=== PATIENT | male | born 1970 | race Caucasian/White ===

== ENCOUNTER 2020-04-13 19:25 | Emergency (ER) | payer OTHER, SELFPAY ==
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
[2020-04-13 19:35] VITALS: BP 121/76; PULSE 111; PULSE 120; RESP 16; TEMP 37.1; O2SAT 94; BMI 25.8
[2020-04-13 20:04] VITALS: BP 119/81; PULSE 110; RESP 19; TEMP 36.3; O2SAT 95; BMI 56.9
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
[2020-04-13 21:19] VITALS: BP 127/88; PULSE 105; RESP 16; O2SAT 96
== END 2020-04-13 21:41 | disposition home or self-care (01) ==
PROVIDERS: Emergency Provider Emergency Medicine
DX: S06.0X1A Concussion with loss of consciousness of 30 minutes or less, initial encounter (principal); G44.309 Post-traumatic headache, unspecified, not intractable; V43.52XA Car driver injured in collision with other type car in traffic accident, initial encounter; Y93.9 Activity, unspecified; Y92.410 Unspecified street and highway as the place of occurrence of the external cause; F17.200 Nicotine dependence, unspecified, uncomplicated; Z71.6 Tobacco abuse counseling; Z21 Asymptomatic human immunodeficiency virus [HIV] infection status; Z79.899 Other long term (current) drug therapy
CPT/HCPCS: 70450; 99284

== ENCOUNTER 2020-04-30 16:59 | Outpatient (REF) | payer OTHER, SELFPAY ==
--- NOTE | 2020-04-30 | XR_ITS ---
EXAMINATION: BILATERAL HAND X-RAY CLINICAL INFORMATION: Pain COMPARISON: Right finger x-ray September 2016 TECHNIQUE: 3 views of each hand FINDINGS: Left: Bone alignment is normal. No fracture or dislocation is seen. There is mild arthritis at the first MCP joint with joint space narrowing and osteophyte formation. Joint spaces are otherwise normal. There is soft tissue calcification adjacent to the distal ulna likely representing tracheal fibrocartilage complex calcification. Soft tissues are otherwise unremarkable. Right: Bone alignment is normal. No fracture or dislocation is seen. There is mild arthritis at the first MCP joint with joint space narrowing and osteophyte formation. Joint spaces are otherwise normal. Soft tissues are normal. XR/XR hand RT min 3V IMPRESSION: Mild bilateral arthritis at the first MCP joint.
--- NOTE | 2020-04-30 | XR_ITS ---
EXAMINATION: BILATERAL HAND X-RAY CLINICAL INFORMATION: Pain COMPARISON: Right finger x-ray September 2016 TECHNIQUE: 3 views of each hand FINDINGS: Left: Bone alignment is normal. No fracture or dislocation is seen. There is mild arthritis at the first MCP joint with joint space narrowing and osteophyte formation. Joint spaces are otherwise normal. There is soft tissue calcification adjacent to the distal ulna likely representing tracheal fibrocartilage complex calcification. Soft tissues are otherwise unremarkable. Right: Bone alignment is normal. No fracture or dislocation is seen. There is mild arthritis at the first MCP joint with joint space narrowing and osteophyte formation. Joint spaces are otherwise normal. Soft tissues are normal. XR/XR hand LT min 3V IMPRESSION: Mild bilateral arthritis at the first MCP joint.
== END 2020-04-30 17:00 | disposition home or self-care (01) ==
LOC: HO.LAB 16:59
PROVIDERS: Visit Provider Internal Medicine
DX: M79.641 Pain in right hand (principal); M79.642 Pain in left hand
CPT/HCPCS: 73130

== ENCOUNTER 2022-08-04 15:13 | Outpatient (REF) | payer MEDICAID, SELFPAY ==
--- NOTE | ~2022-08-04 | US_ITS ---
EXAMINATION: US VENOUS WITH DOPPLER UPPER EXTREMITY, LEFT CLINICAL INFORMATION: Left upper extremity swelling. COMPARISON: None TECHNIQUE: Ultrasound of the upper extremity is performed using compression sonography and color and pulse Doppler flow with assessment of augmentation of flow. There is also imaging and Doppler assessment of the jugular and subclavian veins. Spectral analysis with color-flow imaging is performed. FINDINGS: Respiratory variation, normal compression, and augmented flow are noted throughout the upper extremity including the axillary, brachial, cubital, and radial and ulnar veins. There is normal flow in the internal jugular and subclavian veins. There is no visible deep or superficial thrombophlebitis. If the patient's symptoms progress, a followup ultrasound in 5 -7 days might be of value to exclude proximal propagation from a nonvisualized distal arm vein. US/US venous duplex UE LT IMPRESSION: No evidence for deep venous thrombosis in the visualized veins of the left upper extremity.
== END 2022-08-04 15:14 | disposition home or self-care (01) ==
LOC: HO.US 15:13
PROVIDERS: Visit Provider Family Medicine
DX: M79.89 Other specified soft tissue disorders (principal)
CPT/HCPCS: 93971

== ENCOUNTER 2022-08-04 15:55 | Emergency (ER) | payer MEDICAID, SELFPAY ==
--- NOTE | ~2022-08-04 | XR_ITS ---
EXAMINATION: XR CHEST CLINICAL INFORMATION: Arm and back pain COMPARISON: 03/26/2015 TECHNIQUE: 2 views of the chest were obtained. FINDINGS: No significant abnormality is noted involving the heart, lungs, mediastinum, bony thorax or soft tissues. XR/XR chest 2V IMPRESSION: Unremarkable examination.
[2022-08-04 16:15] VITALS: BP 142/76; PULSE 81; RESP 18; TEMP 36.4; O2SAT 96; BMI 28.8
--- NOTE | 2022-08-04 16:15 | ED_ITS ---
HPI - Chest Pain General Chief Complaint: General Medical Stated Complaint: l arm pain and back pain Related Data Allergies Allergy/AdvReac Type Severity Reaction Status Date / Time No Known Allergies Allergy Verified 04/13/20 19:38 [No Known Allergies*] [facility] Past Medical History Medical History (Updated 08/06/22 @ 11:05 by Erinn Larios NP) Arthritis Bipolar 1 disorder HIV (human immunodeficiency virus infection) Presence of stent in LAD coronary artery Social History Social History Advance Directives: No Advance Directives Information Provided: No Physical Exam Vital Signs: Vital Signs: Last Vital Signs Temp 97.6 F 08/04/22 16:15 Pulse 81 08/04/22 16:15 Resp 18 08/04/22 16:15 BP 142/76 H 08/04/22 16:15 Pulse Ox 96 08/04/22 16:15 O2 Del Method 08/04/22 16:15 BMI result Body Mass Index 28.8 Course Course Course Narrative: This is rapid medical exam. Deferred additional HPI, ROS, PE to primary provider. 52 yo male with history of CAD s/p stent, HIV on biktarvey, artificial hip here with complaints of left upper back/arm pain x 10 days at night time only. NO symptoms currently. This pain feels similar to previous ID. Will obtain labs, EKG, CXR, covid screen, VSS Medical Decision Making Lab Data 08/04/22 16:30 08/04/22 16:30 Labs: Lab Results 08/04/22 08/04/22 08/04/22 Range/Units 16:30 16:30 16:30 WBC 7.8 (4.8-10.8) X10*3/uL RBC 4.45 L (4.60-5.80) X10*6/uL Hgb 15.0 (14.0-18.0) g/dl Hct 43.2 (42.0-52.0) % MCV 97.1 (80.0-98.0) fL MCH 33.7 H (27.0-33.0) pg MCHC 34.7 (31.0-36.0) g/dl RDW 13.3 (11.0-16.0) % Plt Count 252 (160-400) X10*3/uL MPV 10.0 (9.4-12.4) fL Immature Gran % (Auto) 0.3 (0.0-0.4) % Neut % (Auto) 49.2 (45-73) % Lymph % (Auto) 36.4 (20-40) % [place] % (Auto) 9.4 (2-11) % Eos % (Auto) 4.4 H (0-4) % Baso % (Auto) 0.3 (0-2) % Lymph # (Auto) 2.8 (1.2-4.9) X10*3/uL [place] # (Auto) 0.7 (0.1-1.2) X10*3/uL Eos # (Auto) 0.3 (0.0-0.4) X10*3/uL Baso # (Auto) 0.0 (0.0-0.2) X10*3/uL Abs Immat Gran (auto) 0.02 (0.00-0.03) X10*3/uL Absolute Neuts (auto) 3.8 (2.0-8.3) x10*3/uL Absolute Nucleated RBC 0.000 (0.0-0.012) X10*3/uL Nucleated RBC % (auto) 0.0 (0.0-0.2) /100WBC Sodium 139 (135-145) mmol/L Potassium 4.2 (3.3-5.1) mmol/L Chloride 109 H (96-108) mmol/L Carbon Dioxide 21 L (22-29) mmol/L Anion Gap 13 (12-20) BUN 18 H (9-16) mg/dL Creatinine 0.98 (0.5-1.4) mg/dL Estim Creat Clear Calc 98.1 Estimated GFR > 60 Random Glucose 95 (60-115) mg/dL Calcium 8.9 (8.4-10.2) mg/dL Total Bilirubin 0.6 (0.0-1.0) mg/dL Direct Bilirubin < 0.2 (0.0-0.5) mg/dL AST 20 (5-37) U/L ALT 29 (0-40) U/L Alkaline Phosphatase 136 H (39-117) U/L Troponin I High Sens (<3.5-35.0) ng/L Total Protein 6.9 (6.5-8.0) g/dL Albumin 4.4 (3.5-5.0) g/dL COVID-19 ([place]) Negative (Negative) COVID-19 Clin Com See Note 08/04/22 Range/Units 16:30 WBC (4.8-10.8) X10*3/uL RBC (4.60-5.80) X10*6/uL Hgb (14.0-18.0) g/dl Hct (42.0-52.0) % MCV (80.0-98.0) fL MCH (27.0-33.0) pg MCHC (31.0-36.0) g/dl RDW (11.0-16.0) % Plt Count (160-400) X10*3/uL MPV (9.4-12.4) fL Immature Gran % (Auto) (0.0-0.4) % Neut % (Auto) (45-73) % Lymph % (Auto) (20-40) % [place] % (Auto) (2-11) % Eos % (Auto) (0-4) % Baso % (Auto) (0-2) % Lymph # (Auto) (1.2-4.9) X10*3/uL [place] # (Auto) (0.1-1.2) X10*3/uL Eos # (Auto) (0.0-0.4) X10*3/uL Baso # (Auto) (0.0-0.2) X10*3/uL Abs Immat Gran (auto) (0.00-0.03) X10*3/uL Absolute Neuts (auto) (2.0-8.3) x10*3/uL Absolute Nucleated RBC (0.0-0.012) X10*3/uL Nucleated RBC % (auto) (0.0-0.2) /100WBC Sodium (135-145) mmol/L Potassium (3.3-5.1) mmol/L Chloride (96-108) mmol/L Carbon Dioxide (22-29) mmol/L Anion Gap (12-20) BUN (9-16) mg/dL Creatinine (0.5-1.4) mg/dL Estim Creat Clear Calc Estimated GFR Random Glucose (60-115) mg/dL Calcium (8.4-10.2) mg/dL Total Bilirubin (0.0-1.0) mg/dL Direct Bilirubin (0.0-0.5) mg/dL AST (5-37) U/L ALT (0-40) U/L Alkaline Phosphatase (39-117) U/L Troponin I High Sens 8.5 (<3.5-35.0) ng/L Total Protein (6.5-8.0) g/dL Albumin (3.5-5.0) g/dL COVID-19 ([place]) (Negative) COVID-19 Clin Com Discharge Plan Discharge Clinical Impression: Back pain Patient Disposition: Elopement Interventions: ED Discharge Assessment Last Done: 08/04/22 23:48 Discharge Date/Time: 08/04/22 23:49
--- NOTE | 2022-08-04 16:17 | ECG_ITS ---
Test Reason : cp Blood Pressure : / mmHG Vent. Rate : 077 BPM Atrial Rate : 077 BPM P-R Int : 166 ms QRS Dur : 086 ms QT Int : 366 ms P-R-T Axes : 022 050 024 degrees QTc Int : 414 ms Normal sinus rhythm Normal ECG When compared with ECG of 19-AUG-2018 21:15, No significant change was found Referred By: Erinn Larios Electronically Signed By:Raymond Mckinnon
[2022-08-04 16:38] LABS: MANUAL DIFF FLAG NO
[2022-08-04 16:39] LABS: Basophils Percent Auto 0.3 % (0-2); Eosinophils Absolute Auto 0.3 X10*3/uL (0.0-0.4); Eosinophils Percent Auto 4.4 % (0-4); Hematocrit 43.2 % (42.0-52.0); Imm Gran Abs Auto 0.02 X10*3/uL (0.00-0.03); Imm Gran Pct Auto 0.3 % (0.0-0.4); Lymphocytes Absolute Auto 2.8 X10*3/uL (1.2-4.9); Lymphocytes Percent Auto 36.4 % (20-40); Mean Corpuscular HGB Conc 34.7 g/dl (31.0-36.0); Mean Corpuscular Hemoglobin 33.7 pg (27.0-33.0); Mean Corpuscular Volume 97.1 fL (80.0-98.0); Monocytes Absolute Auto 0.7 X10*3/uL (0.1-1.2); Monocytes Percent Auto 9.4 % (2-11); Neutrophils Absolute Auto 3.8 x10*3/uL (2.0-8.3); Neutrophils Percent Auto 49.2 % (45-73); Platelet Count 252 X10*3/uL (160-400); Red Blood Count 4.45 X10*6/uL (4.60-5.80); Red Cell Distribution Width 13.3 % (11.0-16.0); White Blood Count 7.8 X10*3/uL (4.8-10.8)
[2022-08-04 16:55] LABS: COVID-19 Test Negative (Negative); IDNOW Serial# 9DB6401D
[2022-08-04 16:58] LABS: Alanine Aminotransferase 29 U/L (0-40); Albumin Level 4.4 g/dL (3.5-5.0); Alkaline Phosphatase 136 U/L (39-117); Anion Gap 13 (12-20); Aspartate Amino Transferase 20 U/L (5-37); Bilirubin Direct < 0.2 mg/dL (0.0-0.5); Bilirubin Total 0.6 mg/dL (0.0-1.0); Blood Urea Nitrogen 18 mg/dL (9-16); Calcium 8.9 mg/dL (8.4-10.2); Carbon Dioxide 21 mmol/L (22-29); Chloride 109 mmol/L (96-108); Creatinine Clr Calc Pharmacy 98.1; Estimated Glomerular Filt Rate > 60; Glucose Random 95 mg/dL (60-115); Potassium 4.2 mmol/L (3.3-5.1); Sodium 139 mmol/L (135-145); Total Protein 6.9 g/dL (6.5-8.0)
[2022-08-04 17:05] LABS: Troponin-I High Sensitivity 8.5 ng/L (<3.5-35.0)
== END 2022-08-04 23:49 | disposition left against medical advice (07) ==
PROVIDERS: Nurse Practitioner Family; Emergency Provider Emergency Medicine; PCP Internal Medicine
DX: R07.89 Other chest pain (principal); M54.2 Cervicalgia; M54.50 Low back pain, unspecified; Z20.822 Contact with and (suspected) exposure to COVID-19; Z20.828 Contact with and (suspected) exposure to other viral communicable diseases; Z79.899 Other long term (current) drug therapy
CPT/HCPCS: 36415; 71046; 80048; 80076; 84484; 85025; 87635; 93005; 99283

== ENCOUNTER 2023-10-22 13:51 | Outpatient (REF) | payer MEDICAID, SELFPAY ==
[2023-10-22 16:35] LABS: Alanine Aminotransferase 19 U/L (0-40); Albumin Level 4.4 g/dL (3.5-5.0); Alkaline Phosphatase 86 U/L (39-117); Anion Gap 12 (12-20); Aspartate Amino Transferase 19 U/L (5-37); Bilirubin Total 0.4 mg/dL (0.0-1.0); Blood Urea Nitrogen 20 mg/dL (9-16); Calcium 9.5 mg/dL (8.4-10.2); Carbon Dioxide 24 mmol/L (22-29); Chloride 106 mmol/L (96-108); Estimated Glomerular Filt Rate > 60; Glucose Random 122 mg/dL (60-115); Potassium 4.4 mmol/L (3.3-5.1); Sodium 138 mmol/L (135-145); Total Protein 7.4 g/dL (6.5-8.0)
[2023-10-22 16:38] LABS: Basophils Percent Auto 0.4 % (0-2); Eosinophils Absolute Auto 0.2 X10*3/uL (0.0-0.4); Eosinophils Percent Auto 3.9 % (0-4); Hematocrit 46.6 % (42.0-52.0); Hemoglobin 15.6 g/dl (14.0-18.0); Imm Gran Abs Auto 0.02 X10*3/uL (0.00-0.03); Imm Gran Pct Auto 0.4 % (0.0-0.4); Lymphocytes Absolute Auto 1.5 X10*3/uL (1.2-4.9); Lymphocytes Percent Auto 30.2 % (20-40); MANUAL DIFF FLAG SCAN; Mean Corpuscular HGB Conc 33.5 g/dl (31.0-36.0); Mean Corpuscular Hemoglobin 31.5 pg (27.0-33.0); Mean Platelet Volume 10.9 fL (9.4-12.4); Monocytes Absolute Auto 0.6 X10*3/uL (0.1-1.2); Monocytes Percent Auto 12.6 % (2-11); Neutrophils Absolute Auto 2.5 x10*3/uL (2.0-8.3); Neutrophils Percent Auto 52.5 % (45-73); PLT CLUMP 1; Red Blood Count 4.96 X10*6/uL (4.60-5.80); Red Cell Distribution Width 13.1 % (11.0-16.0); SCAN SMEAR FLAG 1
[2023-10-22 17:20] LABS: Platelet Count 195 X10*3/uL (160-400); White Blood Count 4.8 X10*3/uL (4.8-10.8)
[2023-10-22 17:25] LABS: SLIDE REVIEW VERIFIED
[2023-10-23 10:42] LABS: Absolute CD3 Count 1338 cells/uL (840-3060); Absolute CD4 Count 655 cells/uL (490-1740); Absolute CD8 Count 693 cells/uL (180-1170); Absolute Lymphocytes 1622 cells/uL (850-3900); CD4 CD8 Ratio 0.94 (0.86-5.00); Percent CD3 Cells 82 % (57-85); Percent CD4 Cells 40 % (30-61); Percent CD8 Cells 43 % (12-42)
[2023-10-23 12:33] LABS: RPR Rapid Plasma Reagin REACTIVE (NON-REACTIVE)
[2023-10-24 15:23] LABS: HIV RNA PCR Qn Copies <20 DETECTED copies/mL (NOT DETECTED); HIV RNA PCR Qn Log Copies <1.30 DETECTED (NOT DETECTED)
== END 2023-10-22 13:52 | disposition home or self-care (01) ==
LOC: HO.HHCL 13:51
PROVIDERS: Visit Provider Student in an Organized Health Care Education/Training Program
DX: Z21 Asymptomatic human immunodeficiency virus [HIV] infection status (principal)
CPT/HCPCS: 36415; 80053; 85025; 86359; 86360; 86592; 86593; 87536

== ENCOUNTER 2023-12-14 13:27 | Outpatient (REF) | payer MEDICAID, SELFPAY | END 2023-12-14 13:28 | disposition home or self-care (01) | LOC: HO.HHCLNP 13:27 | PROVIDERS: Visit Provider Student in an Organized Health Care Education/Training Program | DX: Z21 Asymptomatic human immunodeficiency virus [HIV] infection status (principal) | CPT/HCPCS: 88112 ==

== ENCOUNTER 2024-01-11 13:54 | Outpatient (AMB) | payer MEDICAID, SELFPAY ==
--- NOTE | 2024-01-11 13:54 | MHC.OFFVIS ---
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 HIV+ *[place] precautions* Patient c/o; reports no complaints. 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 He had undergone anal Pap with his infectious disease doctor last month and this had shown low-grade squamous intraepithelial lesions. He was therefore sent to me for this He has known HIV. He says he has had multiple anal procedures in the past. He denies any pain or discomfort with his anus. He does admit to occasionally sees small amounts of blood on wiping He engages in anal receptive intercourse although he says that he has had none for several months now. [facility] Medical History (Updated 01/11/24 @ 14:25 by Francis Carlson MD) AIN grade I Presence of stent in LAD coronary artery Bipolar 1 disorder Arthritis HIV (human immunodeficiency virus infection) Surgical History No pertinent past surgical history Family History Other Family history unknown Social History Unable to assess alcohol history related to: Unknown Patient Tobacco Use Status: Tobacco use Unknown Review of Systems Const Denies chills and Denies fever(s) Card Denies chest pain, Denies dyspnea and Denies dyspnea on exertion Resp Denies cough, Denies dyspnea and Denies dyspnea on exertion GI Denies hematochezia and Denies change in bowel habits Denies hematuria and Denies difficulty urinating Musc Denies back pain and Denies limited range of motion Neuro Denies focal weakness and Denies convulsions Psych Denies depression and Denies mood swings Physical Exam Vital Signs: Last Vital Signs Pulse 101 H 01/11/24 13:59 BP 126/85 01/11/24 13:59 BMI result Body Mass Index 23.1 Const General: comfortable and no acute distress Orientation/consciousness: patient oriented x3 Neck Neck: Yes no lymphadenopathy Resp Auscultation: clear to auscultation bilaterally Cardio Rhythm: regular rhythm GI Other: Rectal exam shows external hemorrhoids, both left and right side, moderate-sized, no obvious perianal lesions Palpation (GI): Soft to palpation, nontender and no guarding Neuro General: patient oriented x3 Office Procedures Anoscopy He was in ambrose-knife position. The anoscope was gently inserted. A full examination of the anal canal was done. Examination of the anal canal does not reveal any obvious lesions. There was no mucosal abnormality. He did have mixed internal external hemorrhoidal columns. There was no induration on digital exam. There was no fissure or ulceration. [id number] Assessment & Plan Assessment & Plan (1) AIN grade I: Code(s): K62.82 - Dysplasia of anus Category: Medical Plan: He had AIN 1 on a recent anal Pap. His anoscopy does not suggest any high-grade lesion. I have recommended for him to undergo anoscopy every 6 months here in the office. I will review his records from his previous anal procedures in [place]. We may consider high-resolution anoscopy down the line depending on anoscopy findings I advised him on the importance of protected anal intercourse I will see him again in the office in about 6 months. He has comfortable with the plan. I will also update him once I review his records from [place]. Coding Level of Care Code New Pt Level 3 (43131) Diagnoses AIN grade I K62.82 CPT Codes Details - CPT: 22067-[id number] ([id number])
[2024-01-11 13:59] VITALS: BP 126/85; PULSE 101; BMI 23.1
== END 2024-01-11 14:28 | disposition home or self-care (01) ==
PROVIDERS: PCP Internal Medicine; Referring Provider Student in an Organized Health Care Education/Training Program; Visit Provider Surgery
DX: K62.82 Dysplasia of anus (principal); K64.8 Other hemorrhoids
CPT/HCPCS: 46600; 99203

== ENCOUNTER → 2024-01-11 13:54 | Outpatient (BNVA) | payer MEDICAID, SELFPAY | PROVIDERS: PCP Internal Medicine; Referring Provider Student in an Organized Health Care Education/Training Program; Visit Provider Surgery | DX: K62.82 Dysplasia of anus (principal); K64.8 Other hemorrhoids; K64.4 Residual hemorrhoidal skin tags | CPT/HCPCS: 46600; 99202 ==

== ENCOUNTER 2024-04-06 16:12 | Outpatient (REF) | payer MEDICAID, SELFPAY ==
[2024-04-06 17:52] LABS: MANUAL DIFF FLAG NO
[2024-04-06 18:12] LABS: Basophils Percent Auto 0.4 % (0-2); Eosinophils Absolute Auto 0.5 X10*3/uL (0.0-0.4); Eosinophils Percent Auto 7.7 % (0-4); Hematocrit 43.2 % (42.0-52.0); Hemoglobin 14.7 g/dl (14.0-18.0); Imm Gran Abs Auto 0.02 X10*3/uL (0.00-0.03); Imm Gran Pct Auto 0.3 % (0.0-0.4); Lymphocytes Absolute Auto 2.3 X10*3/uL (1.2-4.9); Lymphocytes Percent Auto 33.4 % (20-40); Mean Corpuscular Hemoglobin 33.1 pg (27.0-33.0); Mean Corpuscular Volume 97.3 fL (80.0-98.0); Monocytes Absolute Auto 0.6 X10*3/uL (0.1-1.2); Monocytes Percent Auto 9.1 % (2-11); Neutrophils Absolute Auto 3.4 x10*3/uL (2.0-8.3); Neutrophils Percent Auto 49.1 % (45-73); Platelet Count 259 X10*3/uL (160-400); Red Blood Count 4.44 X10*6/uL (4.60-5.80); Red Cell Distribution Width 13.7 % (11.0-16.0); White Blood Count 6.9 X10*3/uL (4.8-10.8)
[2024-04-06 18:25] LABS: Estimated Average Glucose 111 mg/dL; Hemoglobin A1c % 5.5 % (<6.0)
[2024-04-06 18:32] LABS: Appearance Urine Clear; Color Urine Yellow; Glucose Urine UA Negative (Negative); Leukocyte Esterase Urine Negative (Negative); Nitrite Urine Negative (Negative); PH 5.5 (5.0-9.0); Urine Blood Negative (Negative); Urine Ketones Negative (Negative); Urine Protein Negative (Neg-Trace)
[2024-04-06 18:37] LABS: Alanine Aminotransferase 23 U/L (0-40); Albumin Level 4.5 g/dL (3.5-5.0); Alkaline Phosphatase 98 U/L (39-117); Anion Gap 14 (12-20); Aspartate Amino Transferase 20 U/L (5-37); Bilirubin Total 0.4 mg/dL (0.0-1.0); Blood Urea Nitrogen 14 mg/dL (9-16); Calcium 9.3 mg/dL (8.4-10.2); Carbon Dioxide 23 mmol/L (22-29); Chloride 109 mmol/L (96-108); Cholesterol 134 mg/dL (<200); Estimated Glomerular Filt Rate > 60; Glucose Random 88 mg/dL (60-115); HDL Cholesterol 33 mg/dL (>40); Potassium 4.6 mmol/L (3.3-5.1); Sodium 141 mmol/L (135-145); Total Protein 7.1 g/dL (6.5-8.0); Triglycerides 433 mg/dL (<150)
[2024-04-06 19:15] LABS: Reflex LDLD? No
[2024-04-07 04:27] LABS: CT PCR NOT DETECTED (Not Detect.); NG PCR NOT DETECTED (Not Detect.)
[2024-04-07 08:42] LABS: HBsAGNum1 0.33 S/CO (0.00-0.99); Hepatitis B Surface Antigen Negative (Negative)
[2024-04-07 08:48] LABS: Hepatitis A Antibody IgG REACTIVE (Nonreactive); ~Hepatitis A Antibody IgG 6.86 S/CO (0.00-0.99)
[2024-04-07 13:09] LABS: HIV RNA PCR Qn Copies <20 DETECTED copies/mL (NOT DETECTED); HIV RNA PCR Qn Log Copies <1.30 DETECTED (NOT DETECTED)
[2024-04-07 13:48] LABS: HCV Log PCR <1.18 NOT DETECTED Log IU/mL (NOT DETECTED); HepC Viral Load <15 NOT DETECTED IU/mL (NOT DETECTED)
[2024-04-09 00:34] LABS: TS Negative Control Passed; TS Panel A 1; TS Panel B 1; TS Positive Control Passed; TSpotTB Negative (Negative)
[2024-04-11 05:08] LABS: Mumps Virus IgG Antibody >300.00 AU/mL; Rubella IgG Antibody <0.90 Index
[2024-04-11 14:53] LABS: RPR Rapid Plasma Reagin REACTIVE (NON-REACTIVE)
== END 2024-04-06 16:13 | disposition home or self-care (01) ==
LOC: HO.HHCL 16:12
PROVIDERS: Visit Provider Student in an Organized Health Care Education/Training Program
DX: Z21 Asymptomatic human immunodeficiency virus [HIV] infection status (principal)
CPT/HCPCS: 36415; 80053; 80061; 81003; 83036; 85025; 86359; 86360; 86481; 86592; 86593; 86708; 86735; 86762; 86765; 86787; 87340; 87491; 87522; 87536; 87591

== ENCOUNTER 2024-05-02 12:01 | Outpatient (REF) | payer MEDICAID, SELFPAY ==
[2024-05-03 12:01] LABS: HBS Num1 733.07 mIU/mL (0-7.99); HBc Num1 0.15 S/CO (0.00-0.79); HBsAGNum1 0.38 S/CO (0.00-0.99); Hepatitis B Core Antibody Nonreactive (Nonreactive); Hepatitis B Surface Antigen Negative (Negative); ~Hepatitis B Surface Antibody REACTIVE (Nonreactive)
[2024-05-03 17:13] LABS: Mumps Virus IgG Antibody >300.00 AU/mL; Rubella IgG Antibody <0.90 Index
[2024-05-04 04:49] LABS: HCV Log PCR <1.18 NOT DETECTED Log IU/mL (NOT DETECTED); HepC Viral Load <15 NOT DETECTED IU/mL (NOT DETECTED)
[2024-05-04 17:04] LABS: RPR Rapid Plasma Reagin REACTIVE (NON-REACTIVE)
[2024-05-06 18:08] LABS: Absolute CD3 Count 1594 cells/uL (840-3060); Absolute CD4 Count 817 cells/uL (490-1740); Absolute CD8 Count 819 cells/uL (180-1170); Absolute Lymphocytes 1843 cells/uL (850-3900); Percent CD3 Cells 86 % (57-85); Percent CD4 Cells 44 % (30-61); Percent CD8 Cells 44 % (12-42)
[2024-05-06 22:45] LABS: C. Trachomatis RNA TMA, Throat NOT DETECTED; N. gonorrhoeae RNA TMA, Throat NOT DETECTED
[2024-05-07 10:39] LABS: C.Trachomatis RNA TMA, Rectal NOT DETECTED; N.Gonorrhoeae RNA TMA, Rectal NOT DETECTED
== END 2024-05-02 12:02 | disposition home or self-care (01) ==
LOC: HO.HHCL 12:01
PROVIDERS: Visit Provider Student in an Organized Health Care Education/Training Program
DX: Z21 Asymptomatic human immunodeficiency virus [HIV] infection status (principal)
CPT/HCPCS: 36415; 86359; 86360; 86592; 86593; 86704; 86706; 86735; 86762; 86765; 87340; 87491; 87522; 87591

== ENCOUNTER 2024-05-09 15:42 | Outpatient (REF) | payer MEDICAID, SELFPAY ==
--- NOTE | ~2024-05-09 | XR_ITS ---
EXAMINATION: XR HIP, LEFT CLINICAL INFORMATION: RDER STATES OA OF LEFT HIP,LEFT HIP PAIN.PT STATES PAIN IS BECOMING UNBEARABLE. COMPARISON: X-ray of the pelvis January 2020 . X-ray of the left hip December 2017 TECHNIQUE: Two views of the left hip. FINDINGS: There is nonuniform joint space narrowing which is severe along the superior lateral aspect of the hip joint which is progressed compared to prior prominent marginal osteophytes. Surrounding bone and soft tissues unremarkable. XR/XR hip LT min 2V IMPRESSION: Severe osteoarthritis of the left hip with the degenerative changes progressing compared to prior x-ray in 2019 and 2017 Electronically signed by: Angel Luis Aranda MD 05/09/2024 04:23 PM EST RP
== END 2024-05-09 15:43 | disposition home or self-care (01) ==
LOC: HO.HHCX 15:42
PROVIDERS: Visit Provider Internal Medicine
DX: M16.12 Unilateral primary osteoarthritis, left hip (principal)
CPT/HCPCS: 73502

== ENCOUNTER 2024-06-08 14:35 | Outpatient (AMB) | payer MEDICAID, SELFPAY ==
[2024-06-08 14:36] VITALS: BMI 23.7
--- NOTE | 2024-06-08 14:36 | MHC.OFFVIS ---
Vital Signs 06/08/24 14:36 Height 5 ft 10 in Weight 165 lb BMI 23.7 Intake Visit Reasons: abnormal anal pap, HIV infection, AIN I Intake Note: This patient presents for abnormal anal pap, HIV infection, AIN I. Pt c/o; reports no complaints. 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 Accompanied by: Self / Same As Patient Allergies No Known Allergies [No Known Allergies*] Allergy (Verified 06/08/24 14:44) Medication List - Last Reconciled 06/08/24 by Francis Carlson MD aspirin 1 tab PO QAM atorvastatin 80 mg PO DAILY ifufjnrzm-klvheqdn-othqrhx ala 50-200-25 mg (Biktarvy) 1 tab PO BEDTIME bupropion HCl XL 300 mg PO QAM clonidine HCl 0.1 mg PO QAM cyanocobalamin (vitamin B-12) 1,000 mcg PO 3XW lisinopril 5 mg PO QAM metoprolol succinate ER 100 mg PO BEDTIME mirtazapine 15 mg PO BEDTIME olanzapine 10 mg PO DAILY HPI HPI abnormal anal pap, HIV infection, AIN I: Details: He is here for follow-up for his history of AIN 1 on Pap smear. I had seen him in January, and had done an anoscopy. This did not reveal any lesions or any suggestion of high-grade AIN. He denies any complaints. He denies any bleeding per rectum. He does admit to a history of anal receptive intercourse. He denies anal complaints. [facility] Medical History AIN grade I Presence of stent in LAD coronary artery Bipolar 1 disorder Arthritis HIV (human immunodeficiency virus infection) Surgical History No pertinent past surgical history Family History Other Family history unknown Social History Unable to assess alcohol history related to: Unknown Patient Tobacco Use Status: Tobacco use Unknown Review of Systems Const Denies chills and Denies fever(s) Card Denies chest pain, Denies dyspnea and Denies dyspnea on exertion Resp Denies cough, Denies dyspnea and Denies dyspnea on exertion GI Denies hematochezia and Denies change in bowel habits Denies hematuria and Denies difficulty urinating Musc Denies back pain and Denies limited range of motion Neuro Denies focal weakness and Denies convulsions Psych Denies depression and Denies mood swings Physical Exam Const General: comfortable and no acute distress Resp Effort & Inspection: normal respiratory effort Cardio Rate: regular rate GI Other: Rectal exam does not reveal any perianal lesions; small external hemorrhoids noted Palpation (GI): Soft to palpation Office Procedures Anoscopy He was in ambrose-knife position. The anoscope was gently inserted. A full examination of the anal canal was done. There were no lesions seen. There was no abnormal lining in the anal canal. There was no bleeding. There was no tenderness or induration. There was note of some small internal/external hemorrhoidal columns [id number] Assessment & Plan Assessment & Plan (1) AIN grade I: Code(s): K62.82 - Dysplasia of anus Category: Medical Plan: Current anoscopy and rectal exam does not reveal any suggestion of any lesion. He does engage in occasional anal receptive intercourse. His last 1 was about 2 months ago. I therefore advised him on protected anal receptive intercourse I will see him again in about 6 months for repeat anoscopy because of his history of AIN 1. Coding Level of Care Code Est Pt Level 3 (65596) Diagnoses AIN grade I K62.82 CPT Codes Details - CPT: [id number] ([id number])
== END 2024-06-08 14:58 | disposition home or self-care (01) ==
PROVIDERS: PCP Internal Medicine; Visit Provider Surgery
DX: K62.82 Dysplasia of anus (principal)
CPT/HCPCS: 46600; 99213

== ENCOUNTER → 2024-06-08 14:35 | Outpatient (BNVA) | payer MEDICAID, SELFPAY | PROVIDERS: PCP Internal Medicine; Visit Provider Surgery | DX: K62.82 Dysplasia of anus (principal); B20 Human immunodeficiency virus [HIV] disease | CPT/HCPCS: 46600; 99212 ==

== ENCOUNTER 2024-06-23 14:33 | Outpatient (REF) | payer MEDICAID, SELFPAY ==
--- NOTE | ~2024-06-23 | MM_ITS ---
EXAMINATION: BONE DENSITOMETRY CLINICAL INDICATION: Disorder of bone, unspecified. COMPARISON: This is the patient's baseline examination. TECHNIQUE: Using a [employer] DXA System (software version: 13.1) manufactured by [employer], dual-energy x-ray absorptiometry was performed of the lumbar spine and left hip. The images are of good technical quality. Summary results are attached. FINDINGS: LEFT FEMUR, NECK: BMD 1.276 g/cm2, Z-score 2.4, T-score 1.6, normal. LEFT FEMUR, TOTAL: BMD 1.192 g/cm2, Z-score 1.1, T-score 0.6, normal. AP SPINE L1-L4: BMD 1.389 g/cm2, Z-score 1.8, T-score 1.4, normal. IDENTIFIED RISK FACTORS: Tobacco use (current smoker), secondary osteoporosis. HISTORY OF FRACTURE: None listed. MEDICATIONS: None listed. MM/XR DEXA axial skeleton IMPRESSION: 1. DIAGNOSIS: Normal bone density based on the lowest T-score value of 0.6 in the total femur applying World Health Organization criteria. 2. 10-YEAR FRACTURE RISK PREDICTION, FRAX: According to the guidelines, FRAX calculation should only be performed on patients in the osteopenia bone density category. Therefore, FRAX was not performed on this patient. 3. Treatment Recommendations: NOF guidelines recommend consideration for treatment in postmenopausal women and men age 50 and older presenting with the following: -A hip or vertebral (clinical or morphometric) fracture. -T-score less than or equal to -2.5 at the femoral neck or spine after appropriate evaluation to exclude secondary causes. -Low bone mass at the hip or spine and a 10-year fracture probability by FRAX of greater than or equal to 3% for hip fracture or greater than or equal to 20% for major osteoporotic fracture based on the [place] adapted WHO algorithm. 4. Other Recommendations: All treatment decisions require clinical judgment and consideration of individual patient factors, including patient preferences, comorbidities, previous drug use, risk factors not captured in the FRAX model (e.g. frailty, falls, vitamin D deficiency, increased bone turnover, interval significant decline in bone density) and possible under or overestimation of fracture risk by FRAX. FUTURE SCAN RECOMMENDATION: People with diagnosed cases of osteoporosis or at high risk for fracture should have regular bone mineral density tests. For patients eligible for Medicare, routine testing is allowed once every 2 years. The testing frequency can be increased to one year for patients who have rapidly progressing disease, those who are receiving or discontinuing medical therapy to restore bone mass, or have additional risk factors. Electronically signed by: Adrian Mcgee MD 06/23/2024 07:38 PM MARY KATE NGUYEN
== END 2024-06-23 14:34 | disposition home or self-care (01) ==
LOC: HO.MAMMO 14:33
PROVIDERS: PCP Internal Medicine; Visit Provider Internal Medicine
DX: Z13.820 Encounter for screening for osteoporosis (principal); M89.9 Disorder of bone, unspecified
CPT/HCPCS: 77080

== ENCOUNTER 2024-07-13 12:53 | Outpatient (AMB) | payer MEDICAID, SELFPAY ==
--- NOTE | 2024-07-13 12:54 | MHC.OFFVIS ---
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 Pt c/o; reports no complaints at this time. 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 He says that he is overdue for colonoscopy for screening. He says he thinks his last colonoscopy about 10 years ago He describes some occasional constipation. He denies any bleeding per rectum. Denies changes in his bowel habits He denies a family history of colon cancer. He has a known history of HIV with anal intraepithelial neoplasia. He undergoes anoscopy in the office regularly. [facility] Medical History (Updated 07/13/24 @ 13:23 by Francis Carlson MD) Colon cancer screening AIN grade I Presence of stent in LAD coronary artery Bipolar 1 disorder Arthritis HIV (human immunodeficiency virus infection) Surgical History No pertinent past surgical history Family History Other Family history unknown Social History Unable to assess alcohol history related to: Unknown Patient Tobacco Use Status: Tobacco use Unknown Review of Systems Const Denies chills and Denies fever(s) Card Denies chest pain, Denies dyspnea and Denies dyspnea on exertion Resp Denies cough, Denies dyspnea and Denies dyspnea on exertion GI Denies hematochezia and Denies change in bowel habits Denies hematuria and Denies difficulty urinating Musc Denies back pain and Denies limited range of motion Neuro Denies focal weakness and Denies convulsions Psych Denies depression and Denies mood swings Physical Exam Vital Signs: Last Vital Signs Pulse 92 07/13/24 12:55 BP 116/70 07/13/24 12:55 BMI result Body Mass Index 24.2 Const General: comfortable and no acute distress Orientation/consciousness: patient oriented x3 Neck Neck: Yes no lymphadenopathy Resp Auscultation: clear to auscultation bilaterally Cardio Rhythm: regular rhythm GI Palpation (GI): Soft to palpation, nontender and no guarding Neuro General: patient oriented x3 Assessment & Plan Assessment & Plan (1) Colon cancer screening: Code(s): Z12.11 - Encounter for screening for malignant neoplasm of colon Category: Medical Plan: 53-year-old male here to schedule for screening colonoscopy. He denies any significant GI complaints I explained to him the technique of colonoscopy for screening. I reviewed the risks including but not limited to bleeding and perforation, as well as the benefits and alternatives. He says he understands and wants to proceed. Coding Level of Care Code Est Pt Level 3 (39268) Diagnoses Colon cancer screening Z12.11
[2024-07-13 12:55] VITALS: BP 116/70; PULSE 92; BMI 24.2
== END 2024-07-13 13:12 | disposition home or self-care (01) ==
PROVIDERS: PCP Internal Medicine; Visit Provider Surgery
DX: Z12.11 Encounter for screening for malignant neoplasm of colon (principal)
CPT/HCPCS: 99213

== ENCOUNTER → 2024-07-13 12:53 | Outpatient (BNVA) | payer MEDICAID, SELFPAY | PROVIDERS: PCP Internal Medicine; Visit Provider Surgery | DX: Z12.11 Encounter for screening for malignant neoplasm of colon (principal) | CPT/HCPCS: 99212 ==

== ENCOUNTER 2024-08-01 07:51 | Outpatient (REF) | payer MEDICAID, SELFPAY ==
--- NOTE | ~2024-08-01 | XR_ITS ---
CLINICAL HISTORY: M25.559 - Pain in unspecified hip Pelvis one view Comparison: None Findings: No acute fracture or dislocation identified. Severe degenerative change in left hip. Right hip prosthesis demonstrates normal alignment. Impression: Severe degenerative change in left hip No acute bony abnormality This document has been electronically signed by: Saleem Herron MD on 08/02/2024 21:43:56
--- OUTSIDE RECORDS SUMMARY | 2024-08-01 07:54 | XMS_ITS | Clinical Summary ---
Author Organization [facility] Address [address] [place] [address] Care Team Providers Care Tavern Keeper Name Role Phone Unavailable Primary Care Provider Unavailabl e Source Comments PLEASE NOTE, if this patient is a minor, it may be UNLAWFUL to discuss sensitive information that is contained in these records (such as FAMILY PLANNING, MENTAL HEALTH or SUBSTANCE ABUSE) with the minor patient's parent or other person without the patient's specific authorization.[facility] Allergies No known active allergies Medications buPROPion HCL (WELLBUTRIN XL) 300 mg 24 hr tablet TAKE ONE TABLET BY MOUTH EVERY DAY IN THE MORNING 09/15/2022 Active atorvastatin (LIPITOR) 80 mg tablet TAKE ONE TABLET BY MOUTH EVERY DAY IN THE MORNING 09/01/2022 Active diphenhydrAMINE HCL (BENADRYL) 25 mg tablet Take 3 Tablets by mouth nightly at bedtime 08/19/2022 Active lisinopriL 5 mg tablet TAKE ONE TABLET BY MOUTH EVERY DAY IN THE MORNING 09/01/2022 Active metoprolol succinate XL (TOPROL-XL) 100 mg 24 hr tablet Take 100 mg by mouth nightly at bedtime 09/01/2022 Active VITAMIN D2 1,250 mcg (50,000 unit) capsule TAKE 1 CAPSULE BY MOUTH ONCE A WEEK 07/23/2022 Active bictegrav/emtri cit/tenofov ala (BIKTARVY ORAL) Take by mouth 08/06/2022 Active mirtazapine (REMERON) 15 mg tablet Take 15 mg by mouth nightly at bedtime 09/15/2022 Active nitroglycerin (NITROSTAT) 0.[address] 1 TABLET UNDER THE TONGUE EVERY 5 MINUTES IF NEEDED FOR CHEST PAIN GO TO ER IF CHEST PAIN DOES NOT RESOLVE AFTER FIRST TABLET) 09/01/2022 Active fluoride, sodium, (DENTAGEL) 1.1 % gelIndications: Caries of enamel (incipient) [place] twice daily and expectorate. Do not rinse. 56 g 4 04/29/2024 Active Active Problems Problem Noted Date Diagnosed Date Fitting and adjustment of dental prosthetic dayday ce 05/05/2023 History of hip replacement 08/08/2022 Encounters Date Type Department Care Team Description 07/29/2024 11:20 AM EST Office Visit [facility] [address] [place] [phone] Naveed Aguayo DDS Caries of enamel (incipient) (Primary Dx); Defective dental mu-ism; Dental caries on smooth surface penetrating into dentin 06/15/2024 3:40 PM EST Office Visit [facility] [address] [place] [phone] Becka Haddad DMD Caries of enamel (incipient) (Primary Dx) 06/15/2024 Travel from Last 3 Months Social History Tobacco Use Types Packs/Day Years Used Date Smoking Tobacco: Every Day Cigarettes Smokeless Tobacco: Former Tobacco Cessation:Ready to Q uit: Not Asked; Counseling Given: Not Answered Alcohol Use Standard Drinks/Week Comments Never 0 (1 standard drink = 0.6 oz pur e alcohol) Social Connections Answer Date Recorded Connectedness 0 03/19/2024 Financial Resource Strain Answer Date R ecorded Financial Resource Strain 0 2021 Stress Answer Date Recorded Stress 0 05/20/2022 Physical Activity Answer Date Recorded Physical Activity 0 05/20/2022 Food Insecurity Answer Date Recorded Food 0 03/31/2024 Transportation Needs Answer Date Record ed Transportation 0 05/20/2022 Housing Stability Answer Date Recorded Housing 0 05/20/2022 Safety and Environment Answer Date Vincent rded Safety 0 05/20/2022 Utilities Answer Date Recorded Utilities 0 05/20/2022 Employment Answer Date Recorded Stress 0 03/19/2024 Sex and Gender Information Value Date Recorded Sex Assigned at Not on file Legal Sex Male 8:53 AM PDT Gender Identity Not on file Sexual Orientation Not on file Last Filed Vital Signs Vital Sign Reading Time Taken Comments Blood Pressure 131/85 07/29/2024 11:16 AM EST Pulse 88 07/29/2024 11:16 AM EST Temperature - - Respiratory Rate - - Oxygen Saturation - - Inhaled Oxygen Concentration - - Weight - - Height - - Body Mass Index - - Plan of Treatment Upcoming Encounters Date Type Department Care Team (Late st Contact Info) Description 08/09/2024 2:20 PM EST Office Visit [address] [phone] Naveed Aguayo, S [address] [place] [address] 08/15/2024 4:20 PM EST Office Visit [address] [phone] Naveed Aguayo, DDS [address] [place] [address] 10/27/2024 3:00 PM EDT Office Visit [address] [phone] Siva Campos Kelly [address] [place] [address] Health Maintenance Due Date Last Done Comments Diabetes Screening 1971 Hepatitis C Screening 1971 Lipid Screening 1971 HIV Screening 1971 Syphilis Screening 07/19/1985 CT Colonography 2016 Colonoscopy 2016 Colorectal Cancer Screening 2016 FIT/gFOBT 2016 Fecal DNA 2016 Flexible Sigmoidoscopy 2016 Imm-DTaP/Tdap/Td (3 - Td or Tdap) 01/03/2021 01/03/2011, 07/30/2010, 06/22/2007 Imm-Pneumococcal (3 of 3 - P CV20 or PCV21) 2021 01/17/2016, 10/31/2014, 05/09/2010, Additional history exists Imm-Zoster, Recombinant (1 of 2) 2021 Tobacco Cessation Counseling (#1) 10/06/2023 [id number] (3 - season) 03/06/202410/03/2 021, 09/05/2020 Imm-Influenza (#1) 2024 07/03/2020, 1 , 06/03/2018, Additional history exists Alcohol and Drug Screen 07/06/2024 Depression Annual Screen 07/06/2024 Dental BW 04/30/2025 04/28/2024, 04/2 10/2023, 05/04/2023, Additional history exists Dental Examination 04/30/2025 04/28/2024, 0 10/28/2023, 05/04/2023, Additional history exists Dental Perio Charting 04/30/2025 04/28/2024 , 10/28/2023, 05/04/2023 Dental Prophy 04/30/2025 04/28/2024, 042 10/2023, 05/04/2023, Additional history exists Hypertension Screening (#1) 07/29/2025 Dental FMX/Pano 08/10/2027 08/08/2022 Imm-Hepatitis A Completed 02/13/2006, 04/11/2005 Imm-Hepatitis B Completed 02/13/2006, 0303/2006, 08/14/2005 Procedures Procedure Name Priority Date/Time Associated Diagnosis Comments 30 MOD RESIN-BASED COMPOSITE - THREE SURFACES POSTERIOR Routine 07/29/2024 11:20 AM EST Caries of enamel (incipient) Dental caries on smooth surface penetrating into dentin Defective dental mu-ism 29 DO RESIN-BASED COMPOSITE - TWO SURFACES POSTERIOR Routine 07/29/2024 11:20 AM EST Defective dental mu-ism Dental caries on smooth surface penetrating into dentin Caries of enamel (incipient) 31 MO RESIN-BASED COMPOSITE - TWO SURFACES POSTERIOR Routine 07/29/2024 11:20 AM EST Caries of enamel (incipient) Defective dental mu-ism Dental caries on smooth surface penetrating into dentin OFFICE VISIT OBSERVATION NO OTHER SRVC PERFORMED Routine 06/15/2024 3:40 PM EST Caries of enamel (incipient) BITEWINGS - FOUR RADIOGRAPHIC IMAGES Routine 04/28/2024 4:20 PM EDT Encounter for dental examination Caries Caries of enamel (incipient) Dental caries on smooth surface penetrating into dentin PROPHYLAXIS - ADULT Routine 04/28/2024 4 :20 PM EDT Encounter for dental examination Caries Caries of enamel (incipient) Dental caries on smooth surface penetrating into dentin PERIODIC ORAL EVALUATION ESTABLISHED PATIENT Routine 04/28/2024 4:20 PM EDT Encounter for dental examination Caries Caries of enamel (incipient) Dental caries on smooth surface penetrating into dentin COMP PERIODONTAL EVALUATION - NEW/EST PATIENT Routine 10/28/2023 2:20 PM EDT Encounter for dental examination Caries of enamel (incipient) Dental caries on smooth surface penetrating into dentin Full INTRAORAL - COMP SERIES OF RADIOGRAPHIC IMAGES Routine 08/08/2022 1:40 PM EST Gingivitis, chronic, plaque induced from Last 3 Months or Most Recently Relevant to Health Maintenance Insurance [place]
--- OUTSIDE RECORDS SUMMARY | 2024-08-01 07:54 | XMS_ITS | Encounter Summary ---
Author Organization [facility] Address [address] [place] [address] Care Team Providers Care Boiler/Chiller Technician Name Role Phone Unavailable Primary Care Provider Unavailabl e Reason for Visit * Reason Comments Dental Restorative Encounter Details Date Type Department Care Team (Late st Contact Info) Description 07/29/2024 11:20 AM EST Office Visit [address] [phone] Naveed Aguayo DDS [address] [place] [address] Caries of enamel (incipient) (Primary Dx); Defective dental methodist; Dental caries on smooth surface penetrating into dentin Social History Tobacco Use Types Packs/Day Years Used Date Smoking Tobacco: Every Day Cigarettes Smokeless Tobacco: Former Alcohol Use Standard Drinks/Week Comments Never 0 [...] on file Sexual Orientation Not on file documented as of this encounter Last Filed Vital Signs Vital Sign Reading Time Taken Comments Blood Pressure 131/85 07/29/2024 11:16 AM EST Pulse 88 07/29/2024 11:16 AM EST Temperature - - Respiratory Rate - - Oxygen Saturation - - Inhaled Oxygen Concentration - - Weight - - Height - - Body Mass Index - - documented in this encounter Progress Notes * Naveed Aguayo DDS - 07/29/2024 3:35 PM EST Restorative Subjective Jeb Hunter, 54 year old male, presents alone for restorative. 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 Dental procedures in this visit D2392 - RESIN-BASED COMPOSITE - TWO SURFACES POSTERIOR 29 DO (Completed) Service provider: Naveed Aguayo DDS Billing provider: Naveed Aguayo DDS D2393 - RESIN-BASED COMPOSITE - THREE SURFACES POSTERIOR 30 MOD (Completed) Service provider: Naveed Aguayo DDS Billing provider: Naveed Aguayo DDS D2392 - RESIN-BASED COMPOSITE - TWO SURFACES POSTERIOR 31 MO (Completed) Service provider: Naveed Aguayo DDS Billing provider: Naveed Aguayo DDS Topical Anesthetic: 20% topical benzocaine Local Anesthetic: 1 carpule 2% lidocaine with 1:100k epi Injection administered: IA Isolation used: Cotton roll and Bite Block Excavation of caries and old restorative material completed. No pulpal exposure, but very deep and close to pulp Details: Etch, [place]: A3. Contour/Welsh: Yes Verified occlusion, contacts, and floss Post-Op Information Given: verbal Referral: No orders of the following type(s) were placed in this encounter: Referral. Rx: No orders of the defined types were placed in this encounter. Behavior: Compliant DA: Hui Corley [place]: mattie Nevarez DDS documented in this encounter Plan of Treatment Upcoming Encounters Date Type Department Care Team (Late st Contact Info) Description 08/09/2024 2:20 PM EST Office Visit [address] [phone] Naveed Aguayo DDS [address] [place] [address] 08/15/2024 4:20 PM EST Office Visit [address] [phone] Naveed Aguayo DDS [address] [place], [place] [id number] 10/27/2024 3:00 PM EDT Office Visit [address] [phone] Siva Campos RHD [address] [place] [address] documented as of this encounter Procedures Procedure Name Priority Date/Time Associated Diagnosis Comments 30 MOD RESIN-BASED COMPOSITE - THREE SURFACES POSTERIOR Routine 07/29/2024 11:20 AM EST Caries of enamel (incipient) Dental caries on smooth surface penetrating into dentin Defective dental methodist 29 DO RESIN-BASED COMPOSITE - TWO SURFACES POSTERIOR Routine 07/29/2024 11:20 AM EST Defective dental methodist Dental caries on smooth surface penetrating into dentin Caries of enamel (incipient) 31 MO RESIN-BASED COMPOSITE - TWO SURFACES POSTERIOR Routine 07/29/2024 11:20 AM EST Caries of enamel (incipient) Defective dental methodist Dental caries on smooth surface penetrating into dentin documented in this encounter Visit Diagnoses Diagnosis Caries of enamel (incipient)- Primary Dental caries limited to enamel Defective dental methodist Unspecified unsatisfactory methodist of tooth Dental caries on smooth surface penetrating into dentin Dental caries of smooth surface documented in this encounter
== END 2024-08-01 07:52 | disposition home or self-care (01) ==
LOC: HO.HOSX 07:51
PROVIDERS: Visit Provider Orthopaedic Surgery
DX: M25.559 Pain in unspecified hip (principal); M16.12 Unilateral primary osteoarthritis, left hip
CPT/HCPCS: 72170; 99202

== ENCOUNTER 2024-08-01 13:34 | Outpatient (AMB) | payer MEDICAID, SELFPAY ==
[2024-08-01 13:37] VITALS: BMI 24.2
--- NOTE | 2024-08-01 13:37 | A.OFFVIS_ITS ---
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 Patient reports that this is limiting his AODL, as he has difficulty with stairs and walking. He lives on the 2nd floor with no handicap entrance. Hx of Right DALJIT 10/31/2014. Patient rpeorts that he has had pain in the left hip for about 10 years now. he believes that naida has had hx of injections which were not particularly helpful. He has been working with PT which has been helping. He takes Ibuprofen for his pain which does help. His pain is typically constant and throbbing but since PT it has been a less consant pain. 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 He has had known left hip arthritis for years but we had been trying to avoid surgery. I last saw him about 4 years ago and at that time he had moderate arthritic changes with moderate discomfort and we elected to proceed forward conservatively. Over the past several years however his pain has worsened. He has a severe restriction in motion and there are times when his pain prevents him from feeling like he can live a normal life. That his biggest complaint is stiffness and groin pain. He finds it difficult to get in and out of automobiles and 2 walk as much as he would like throughout the day. [facility] Medical History (Updated 08/01/24 @ 14:09 by Juan David Katz MD) Colon cancer screening AIN grade I Presence of stent in LAD coronary artery Bipolar 1 disorder Arthritis HIV (human immunodeficiency virus infection) Surgical History (Updated 07/27/24 @ 11:33 by Josie Win CMA) History of right hip replacement (~10/2014) No pertinent past surgical history Family History Other Family history unknown Social History Unable to assess alcohol history related to: Unknown Patient Tobacco Use Status: Tobacco use Unknown Physical Exam Vital Signs: BMI result Body Mass Index 24.2 Extrem Other: + impingement 110 flexion +gait antalgia Results Reviewed Results Reviewed: I personally reviewed relevant radiographs. Compared to the 2020 radiographs his left hip osteoarthritis has progressed from moderate to severe. Assessment & Plan Assessment & Plan (1) Osteoarthritis of left hip: Code(s): M16.12 - Unilateral primary osteoarthritis, left hip Category: Medical Plan: This is a 54-year-old gentleman with severe osteoarthritis of the left hip. He can not ambulate normally and feels the quality of his life is diminished. I recommend left hip arthroplasty. I discussed the procedure as well as the risks, benefits and alternatives including, but not limited to, the risk of infection, stiffness, fracture, dislocation, aseptic loosening as well as medical complications associated with surgery including cardiac and pulmonary as well as potential for clotting. He does have HIV but his levels have been undetectable for decades. Orders: Orders XR pelvis 1-2V Today M25.559 - Pain in unspecified hip Coding Level of Care Code New Pt Level 4 (76577) Diagnoses Osteoarthritis of left hip M16.12
--- OUTSIDE RECORDS SUMMARY | 2024-08-01 18:18 | XMS_ITS | Clinical Summary ---
Author Organization [facility] Address [address] [place] [address] Care Team Providers Care Wind Tunnel Technician Name Role Phone Unavailable Primary Care [...] 1.1 % gelIndications: Caries of enamel (incipient) [place] twice daily and expectorate. Do not rinse. 56 g 4 04/29/2024 Active Active Problems Problem Noted Date Diagnosed Date Fitting and adjustment of dental prosthetic dayday ce 05/05/2023 History of hip replacement 08/08/2022 Encounters Date Type Department Care Team Description 07/29/2024 11:20 AM EST Office Visit [facility] [address] [place] [phone] Naveed Aguayo DDS Caries of enamel (incipient) (Primary Dx); Defective dental church; Dental caries on smooth surface penetrating into dentin 06/15/2024 3:40 PM EST Office Visit [facility] [address] [place] [phone] Becka Haddad DMD Caries of [...] Description 08/09/2024 2:20 PM EST Office Visit [address] [phone] Naveed Aguayo, S [address] [place] [address] 08/15/2024 4:20 PM EST Office Visit [address] [phone] Naveed Aguayo, DDS [address] [place] [address] 10/27/2024 3:00 PM EDT Office Visit [address] [phone] Siva Campos Kelly [address] [place] [address] Health Maintenance Due Date Last Done Comments [...] 2) 2021 Tobacco Cessation Counseling (#1) 10/06/2023 [id number] (3 - season) 03/06/202410/03/2 021, 09/05/2020 Imm-Influenza [...] smooth surface penetrating into dentin Defective dental church 29 DO RESIN-BASED COMPOSITE - TWO SURFACES POSTERIOR Routine 07/29/2024 11:20 AM EST Defective dental church Dental caries on smooth surface penetrating into dentin Caries of enamel (incipient) 31 MO RESIN-BASED COMPOSITE - TWO SURFACES POSTERIOR Routine 07/29/2024 11:20 AM EST Caries of enamel (incipient) Defective dental church Dental caries on smooth surface penetrating into [...]
--- OUTSIDE RECORDS SUMMARY | 2024-08-01 18:18 | XMS_ITS | Encounter Summary ---
Author Organization [facility] Address [address] [place] [address] Care Team Providers Care Farm Equipment Operator Name Role Phone Unavailable Primary Care Provider Unavailabl e Reason for Visit * Reason Comments Dental Restorative Encounter Details Date Type Department Care Team (Late st Contact Info) Description 07/29/2024 11:20 AM EST Office Visit [address] [phone] Naveed Aguayo DDS [address] [place] [address] Caries of enamel (incipient) (Primary Dx); Defective dental zoroastrianism; Dental caries on smooth surface penetrating into [...] year old male, presents alone for restorative. 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 Contour/Maltese: Yes Verified occlusion, contacts, and floss Post-Op [...] 08/09/2024 2:20 PM EST Office Visit [address] [phone] Naveed Aguayo DDS [address] [place] [address] 08/15/2024 4:20 PM EST Office Visit [address] [phone] Naveed Aguayo DDS [address] [place], [place] [phone] 10/27/2024 3:00 PM EDT Office Visit [address] [phone] Siva Campos RHD [address] [place] [address] documented as of this encounter Procedures Procedure Name Priority Date/Time Associated Diagnosis Comments 30 MOD RESIN-BASED COMPOSITE - THREE SURFACES POSTERIOR Routine 07/29/2024 11:20 AM EST Caries of enamel (incipient) Dental caries on smooth surface penetrating into dentin Defective dental zoroastrianism 29 DO RESIN-BASED COMPOSITE - TWO SURFACES POSTERIOR Routine 07/29/2024 11:20 AM EST Defective dental zoroastrianism Dental caries on smooth surface penetrating into dentin Caries of enamel (incipient) 31 MO RESIN-BASED COMPOSITE - TWO SURFACES POSTERIOR Routine 07/29/2024 11:20 AM EST Caries of enamel (incipient) Defective dental zoroastrianism Dental caries on smooth surface penetrating into dentin documented in this encounter Visit Diagnoses Diagnosis Caries of enamel (incipient)- Primary Dental caries limited to enamel 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
== END 2024-08-01 14:16 | disposition home or self-care (01) ==
PROVIDERS: PCP Internal Medicine; Visit Provider Orthopaedic Surgery
DX: M16.12 Unilateral primary osteoarthritis, left hip (principal)
CPT/HCPCS: 99204

== ENCOUNTER → 2024-08-01 13:35 | Outpatient (BNV) | payer MEDICAID, SELFPAY | PROVIDERS: Visit Provider Radiology Diagnostic Radiology | DX: M16.12 Unilateral primary osteoarthritis, left hip (principal) | CPT/HCPCS: 72170 ==

== ENCOUNTER 2024-08-02 14:09 | Outpatient (RCR) | payer MEDICAID, SELFPAY | END 2024-09-20 15:24 | disposition home or self-care (01) | LOC: HO.PT 14:09 | PROVIDERS: PCP Internal Medicine; Visit Provider Internal Medicine | DX: M16.12 Unilateral primary osteoarthritis, left hip (principal) | CPT/HCPCS: 97110; 97112; 97162 ==

== ENCOUNTER 2024-08-19 06:09 | Day surgery (SDC) | payer MEDICAID, SELFPAY ==
[2024-08-17 14:13] VITALS: BMI 24.2
--- NOTE | 2024-08-18 11:44 | HO.ANESPROP2 ---
Documented by User: Kay Palomino NP 08/18/24 11:46 HPI - Anesthesia Eval Consult details Narrative: 54yo M for Colonoscopy, possible polypectomy CAD s/p stent LAD 2010 [facility] Active Problems Active Problems: All Active Problems Osteoarthritis of left hip (Acute) Colon cancer screening (Acute) AIN grade I (Acute) Past Medical History Medical History (Updated 08/19/24 @ 07:18 by Abbie Del Castillo RN) Abnormal colonoscopy Colon cancer screening AIN grade I Presence of stent in LAD coronary artery Bipolar 1 disorder Arthritis HIV (human immunodeficiency virus infection) Family History Family History Other Family history unknown Surgical History Surgical History (Updated 08/19/24 @ 06:26 by Abbie Del Castillo RN) History of surgery History of right hip replacement (~10/2014) Social History Social History Unable to assess alcohol history related to: Unknown Patient Tobacco Use Status: Current everyday Tobacco user Tobacco use type: Cigarette Cigarette Packs Per Day: 1 Cigarettes Per Day: 20.0 Use of substances other than those prescribed or required for medical reasons: No Advance Directives: No Advance Directives Information Provided: Yes Meds Allergies Allergy/AdvReac Type Severity Reaction Status Date / Time No Known Allergies Allergy Verified 07/13/24 13:04 [No Known Allergies*] Home Medications ?Medication ?Instructions ?Recorded ?Confirmed ?Last Taken ?Type aspirin 81 mg chewable tablet 1 tab PO QAM 01/11/24 06/08/24 Unknown History atorvastatin 80 mg tablet 80 mg PO DAILY 01/11/24 06/08/24 Unknown History bictegravir 50 mg-emtricitabine 1 tab PO BEDTIME 01/11/24 06/08/24 Unknown History 200 mg-tenofovir alafenam 25 mg tablet (Biktarvy) bupropion HCl 300 mg 24 hr tablet, 300 mg PO QAM 01/11/24 06/08/24 Unknown History extended release clonidine HCl 0.1 mg tablet 0.1 mg PO QAM 01/11/24 06/08/24 Unknown History cyanocobalamin (vitamin B-12) 1,000 mcg PO 3XW 01/11/24 06/08/24 Unknown History 1,000 mcg tablet lisinopril 5 mg tablet 5 mg PO QAM 01/11/24 06/08/24 Unknown History metoprolol succinate 100 mg 100 mg PO BEDTIME 01/11/24 06/08/24 Unknown History tablet,extended release 24 hr mirtazapine 15 mg tablet 15 mg PO BEDTIME 01/11/24 06/08/24 Unknown History olanzapine 10 mg tablet 10 mg PO DAILY 01/11/24 06/08/24 Unknown History Fish Oil PO 08/01/24 Unknown History Exam Height,Weight and Vital Signs: Height 5 ft 10 in Weight 76.657 kg Narrative Narrative: EKG 2022 Vent. Rate : 077 BPM Atrial Rate : 077 BPM P-R Int : 166 ms QRS Dur : 086 ms QT Int : 366 ms P-R-T Axes : 022 050 024 degrees QTc Int : 414 ms Normal sinus rhythm Normal ECG When compared with ECG of 19-AUG-2018 21:15, No significant change was found Assessment and Plan Assessment Anesthesia Assessment: Chart Reviewed Documented by User: Юлия Ramos MD 08/19/24 07:25 [facility] Past Medical History Medical History (Updated 08/19/24 @ 07:18 by Abbie Del Castillo RN) Abnormal colonoscopy Colon cancer screening AIN grade I Presence of stent in LAD coronary artery Bipolar 1 disorder Arthritis HIV (human immunodeficiency virus infection) Family History Family History Other Family history unknown Family history of problems with anesthesia: No Surgical History Surgical History (Updated 08/19/24 @ 06:26 by Abbie Del Castillo RN) History of surgery History of right hip replacement (~10/2014) History of Problems with Anesthesia: No Social History Social History Unable to assess alcohol history related to: Unknown Patient Tobacco Use Status: Current everyday Tobacco user Tobacco use type: Cigarette Cigarette Packs Per Day: 1 Cigarettes Per Day: 20.0 Use of substances other than those prescribed or required for medical reasons: No Advance Directives: No Advance Directives Information Provided: Yes Meds Allergies Allergy/AdvReac Type Severity Reaction Status Date / Time No Known Allergies Allergy Verified 07/13/24 13:04 [No Known Allergies*] Home Medications ?Medication ?Instructions ?Recorded ?Confirmed ?Last Taken ?Type aspirin 81 mg chewable tablet 1 tab PO QAM 01/11/24 06/08/24 Unknown History atorvastatin 80 mg tablet 80 mg PO DAILY 01/11/24 06/08/24 Unknown History bictegravir 50 mg-emtricitabine 1 tab PO BEDTIME 01/11/24 06/08/24 Unknown History 200 mg-tenofovir alafenam 25 mg tablet (Biktarvy) bupropion HCl 300 mg 24 hr tablet, 300 mg PO QAM 01/11/24 06/08/24 Unknown History extended release clonidine HCl 0.1 mg tablet 0.1 mg PO QAM 01/11/24 06/08/24 Unknown History cyanocobalamin (vitamin B-12) 1,000 mcg PO 3XW 01/11/24 06/08/24 Unknown History 1,000 mcg tablet lisinopril 5 mg tablet 5 mg PO QAM 01/11/24 06/08/24 Unknown History metoprolol succinate 100 mg 100 mg PO BEDTIME 01/11/24 06/08/24 Unknown History tablet,extended release 24 hr mirtazapine 15 mg tablet 15 mg PO BEDTIME 01/11/24 06/08/24 Unknown History olanzapine 10 mg tablet 10 mg PO DAILY 01/11/24 06/08/24 Unknown History Fish Oil PO 08/01/24 Unknown History Exam Airway Mallampati Class: II TM Dist: >3cm Neck ROM: Full Partial: Upper and Lower Assessment and Plan Assessment Anesthesia Assessment: Anesthesia Plan Discussed Final Anesthetic Review Family History of Problems with Anesthesia: No History of Problems with Anesthesia: No NPO: Yes ASA Class: III Final Preanesthetic Review: No Changes in Pt Med Stat, Meds/Allgs Chart Reviewed, Consent Obtained/Reviewed, Anes Risks/Benef Reviewed and DNR Form (If Appl.) Patient Risk: Intermediate Procedure Risk: Low Anesthetic Plan Anesthetic Plan: TIVA Disposition: Standard PACU
[2024-08-19 06:23] VITALS: BMI 23.6
[2024-08-19 06:47] VITALS: BP 110/74; PULSE 78; RESP 16; TEMP 36.4; O2SAT 96
[2024-08-19] MEDS: Lactated Ringers 1,000 ML 100 ML IVCONT (06:56)
--- NOTE | 2024-08-19 07:20 | MHC.SHP ---
Pre-Procedural Eval Section A - 24 Hr Update-Section A only Date of Service: 08/19/24 Section B - Complete if H&P > 30 days Chief Complaint: Encounter for screening for malignant neoplasm of Details of Present Illness: For Screening colonoscopy Denies GI complaints Relevant Family History (Specify if Yes): No Relevant Social History: None Present Medications: see Short Stay Collaborative assessment Medical History: Significant History (AIN 1, arthritis) Allergies: Allergies Allergy/AdvReac Type Severity Reaction Status Date / Time No Known Allergies Allergy Verified 07/13/24 13:04 [No Known Allergies*] Review of Systems Sugical H&P ROS: Negative: Constitution, Cardiovascular and Respiratory Exam Surgical H&P Exam: Normal: Heart, Normal: Lungs and Normal: Abdomen Plan Diagnosis/Plan: Unchanged I have reviewed the history and physical and performed a pertinent physical examination on my patient. No changes have occurred unless specified. Time Spent With Patient Time: Total time managing care of this patient today ____ minutes.
--- NOTE | 2024-08-19 08:12 | W.PM.OPN ---
Operative Note Operative Note Date of Service: 08/19/24 Narrative: Preop diagnosis: Colon cancer screening Postop diagnosis: External and internal hemorrhoids, normal colonoscopy findings Procedure: Colonoscopy Surgeon: Francis Carlson MD The patient is a 54-year-old male here for screening colonoscopy. He understood the technique of the planned procedure as well as the risks, benefits, and alternatives. The patient was brought to the operating room and placed in left lateral decubitus position under monitored anesthesia care. A surgical time-out was done. A full digital rectal exam was done and this did not reveal any significant anal lesions. The tip of the Olympus colonoscope was gently introduced through the anal orifice advanced with insufflation all the way to the cecum. We had difficulty traversing part of the sigmoid/left colon in view of severe angulation but we were eventually able to advance the scope past this area. The cecum was intubated. The cecum was identified by visualization of the ileocecal valve as well as the appendiceal orifice. The cecal mucosa was unremarkable. The scope was gradually withdrawn with careful examination of the entire colonic mucosa being done with scope withdrawal. The patient had adequate bowel prep so it was unlikely that any lesion may have been missed. The rectum was reached and there were no lesions seen. The anal canal was unremarkable. The scope was then withdrawn completely with desufflation The patient tolerated the procedure well. There were no immediate complications. He seems to be at average risk for colon cancer so his next colonoscopy may be in the next 10 years. We will continue with regular anoscopies in the office.
[2024-08-19 08:16] VITALS: BP 85/53; PULSE 78; RESP 16; TEMP 36.5; O2SAT 97
[2024-08-19 08:35] VITALS: BP 104/67; PULSE 68; RESP 16; TEMP 36.5; O2SAT 99
== END 2024-08-19 08:45 | disposition home or self-care (01) ==
PROVIDERS: PCP Internal Medicine; Visit Provider Surgery
PROC: 0DJD8ZZ Inspection of Lower Intestinal Tract, Via Natural or Artificial Opening Endoscopic (ICD-10-PCS; CPT 45378; principal; 2024-08-19 07:30)
DX: Z12.11 Encounter for screening for malignant neoplasm of colon (principal); K64.8 Other hemorrhoids; K64.4 Residual hemorrhoidal skin tags; K59.00 Constipation, unspecified; B20 Human immunodeficiency virus [HIV] disease; K62.82 Dysplasia of anus; F31.9 Bipolar disorder, unspecified; I25.10 Atherosclerotic heart disease of native coronary artery without angina pectoris; Z95.5 Presence of coronary angioplasty implant and graft; M16.12 Unilateral primary osteoarthritis, left hip; Z79.82 Long term (current) use of aspirin; Z79.899 Other long term (current) drug therapy; F17.210 Nicotine dependence, cigarettes, uncomplicated; Z98.890 Other specified postprocedural states
CPT/HCPCS: 45378; J2003; J2704

== ENCOUNTER → 2024-08-19 06:09 | Outpatient (BNV) | payer MEDICAID, SELFPAY | PROVIDERS: PCP Internal Medicine; Visit Provider Surgery | DX: Z12.11 Encounter for screening for malignant neoplasm of colon (principal); K64.8 Other hemorrhoids | CPT/HCPCS: 45378 ==

== ENCOUNTER 2024-09-01 10:07 | Outpatient (AMB) | payer MEDICAID, SELFPAY ==
[2024-09-01 10:09] VITALS: BMI 23.6
--- NOTE | 2024-09-01 10:09 | MHC.OFFVIS ---
Vital Signs 09/01/24 10:09 Height 5 ft 10 in Weight 164 lb 3.91 oz BMI 23.6 Intake Visit Reasons: S/P colonoscopy Intake Note: This patient presents for post-op assessment status post colonoscopy. Pt c/o; reports no complaints. 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 Accompanied by: Self / Same As Patient Allergies No Known Allergies [No Known Allergies*] Allergy (Verified 09/01/24 10:13) Medication List - Last Reconciled 09/01/24 by Frnacis Carlson MD aspirin 1 tab PO QAM atorvastatin 80 mg PO DAILY [id number] ala 50-200-25 mg (Biktarvy) 1 tab PO BEDTIME bupropion HCl XL 300 mg PO QAM clonidine HCl 0.1 mg PO QAM cyanocobalamin (vitamin B-12) 1,000 mcg PO 3XW [Fish Oil PO] lisinopril 5 mg PO QAM metoprolol succinate ER 100 mg PO BEDTIME mirtazapine 15 mg PO BEDTIME olanzapine 10 mg PO DAILY [Raised toilet seat duration - 99 days] [SHOWER CHAIR As directed duration 99 days] walker Folding Front wheeled walker duration 99 days HPI HPI S/P colonoscopy: Details: He had undergone colonoscopy 2 weeks ago and he is here to discuss the findings. He denies any current complaints. He denies any problems after his colonoscopy. [facility] Medical History Abnormal colonoscopy Colon cancer screening AIN grade I Presence of stent in LAD coronary artery Bipolar 1 disorder Arthritis HIV (human immunodeficiency virus infection) Surgical History History of colonoscopy (~08/19/24) History of surgery History of right hip replacement (~10/2014) Family History Other Family history unknown Social History Unable to assess alcohol history related to: Unknown Patient Tobacco Use Status: Current everyday Tobacco user Tobacco use type: Cigarette Cigarette Packs Per Day: 1 Cigarettes Per Day: 20.0 Review of Systems Const Denies chills and Denies fever(s) Card Denies chest pain, Denies dyspnea and Denies dyspnea on exertion Resp Denies cough, Denies dyspnea and Denies dyspnea on exertion GI Denies hematochezia and Denies change in bowel habits Denies hematuria and Denies difficulty urinating Musc Denies back pain and Denies limited range of motion Neuro Denies focal weakness and Denies convulsions Psych Denies depression and Denies mood swings Physical Exam Vital Signs: BMI result Body Mass Index 23.6 Const General: comfortable and no acute distress Resp Effort & Inspection: normal respiratory effort GI Palpation (GI): Soft to palpation, not firm and nontender Assessment & Plan Assessment & Plan (1) Colon cancer screening: Code(s): Z12.11 - Encounter for screening for malignant neoplasm of colon Category: Medical Plan: Status post colonoscopy. I did not see any polyps or any lesions. He seems to be at average risk for colon cancer. He denies any family history of colon cancer. I told him that he may have a next colonoscopy in 10 years. However, he says that he thinks he was told before to have it done every 5 years so I told him to confirm this with his primary care physician He is to continue with anoscopy so regularly for his history of AIN 1 with this HIV. Coding Level of Care Code Est Pt Level 2 (09029) Diagnoses Colon cancer screening Z12.11
--- OUTSIDE RECORDS SUMMARY | 2024-09-01 11:41 | XMS_ITS | Encounter Summary ---
Author Organization [facility] Address [address] [place] [address] Care Team Providers Care Mixing Machine Operator Name Role Phone Unavailable Primary Care Provider Unavailabl e Reason for Visit * Reason Comments Dental Restorative Encounter Details Date Type Department Care Team (Late st Contact Info) Description 08/09/2024 3:00 PM EST Office Visit [facility] [address] [place] [phone] Naveed Aguayo DDS [address] [place], [place] [phone] Caries (Primary Dx); Caries of enamel (incipient) Social History Tobacco Use Types Packs/Day Years [...] Sign Reading Time Taken Comments Blood Pressure 131/75 08/09/2024 2:36 PM EST Pulse 86 08/09/2024 2:36 PM EST Temperature - - Respiratory Rate - - Oxygen Saturation - - Inhaled Oxygen Concentration - - Weight - - Height - - Body Mass Index - - documented in this encounter Progress Notes * Naveed Aguayo DDS - 08/09/2024 3:10 PM EST Restorative Subjective Jeb Hunter, 54 year old male, presents alone for restorative. Asp Net Mvc Developer: No Chief Complaint Patient presents with Dental Restorative Objective RMHx: Yes Vitals: Vitals: 08/09/24 1436 BP: 131/75 Pulse: 86 BP Site: Left Arm BP Position: Sitting BP Cuff Size: Regular Adult Pain Score: 0 - No pain Assessment Dx: K02.9 Caries (primary encounter diagnosis) K02.9 Caries of enamel (incipient) Dx Details (Clinical Decision-Making): #18-B(V) caries Plan Informed Consent/PARQ (Procedure, Alternatives, Risks, Questions): Patient confirms informed consent using PARQ. Dental procedures in this visit D2391 - RESIN-BASED COMPOSITE - ONE SURFACE POSTERIOR 18 B(V) (Completed) Service provider: Naveed Aguayo DDS Billing provider: Naveed Aguayo DDS Topical Anesthetic: 20% topical benzocaine Local Anesthetic: 3/4 carpule 2% lidocaine with 1:100k epi Injection administered: IA Isolation used: Cotton roll Excavation of caries completed. No pulpal involvement Details: Etch, Pearson Shade: A3. Contour/Zimbabwean: Yes Verified N/A Post-Op Information Given: verbal Referral: No orders of the following type(s) were placed in this encounter: Referral. Rx: No orders of the defined types were placed in this encounter. Behavior: Compliant DA: Hui Corley [place]: mattie Nevarez DDS documented in this encounter Plan of Treatment Upcoming Encounters Date Type Department Care Team (Late st Contact Info) Description 01/09/2025 1:40 PM EDT Office Visit [address] [phone] Siva Campos, NISHA [address] [place] [address] documented as of this encounter Procedures Procedure Name Priority Date/Time Associated Diagnosis Comments 18 B(V) RESIN-BASED COMPOSITE - ONE SURFACE POSTERIOR Routine 08/09/2024 3:00 PM EST Caries Caries of enamel (incipient) documented in this encounter Visit Diagnoses Diagnosis Caries- Primary Unspecified dental caries Caries of enamel (incipient) Dental caries limited to enamel documented in this encounter
--- OUTSIDE RECORDS SUMMARY | 2024-09-01 11:41 | XMS_ITS | Encounter Summary ---
Author Organization [facility] Address [address] [place] [address] Care Team Providers Care Irrigation Equipment Mechanic Name Role Phone Unavailable Primary Care Provider Unavailabl e Reason for Visit * Reason Comments Dental Restorative Encounter Details Date Type Department Care Team (Late st Contact Info) Description 08/15/2024 4:20 PM EST Office Visit [facility] [address] [place] [phone] Naveed Aguayo DDS [address] [place], [place] [phone] Caries of enamel (incipient) (Primary Dx) Social History Tobacco Use Types Packs/Day Years [...] on file documented as of this encounter Progress Notes * Naveed Aguayo DDS - 08/15/2024 4:49 PM EST Restorative/SDF Subjective Jeb Hunter, 54 year old male, presents alone for restorative/SDF. Worm Farmer: No Chief Complaint Patient presents with Dental Restorative Objective RMHx: Yes Vitals: There were no vitals filed for this visit. Assessment Dx: K02.9 Caries of enamel (incipient) (primary encounter diagnosis) Dx Details (Clinical Decision-Making): #14-B(V) Abfraction-#14-ML incepiant caries Plan Informed Consent/PARQ (Procedure, Alternatives, Risks, Questions): Patient confirms informed consent using PARQ. Dental procedures in this visit D2391 - RESIN-BASED COMPOSITE - ONE SURFACE POSTERIOR 14 B(V) (Completed) Service provider: Naveed Aguayo DDS Billing provider: Naveed Aguayo DDS D1354 - APPLICATION CARIES ARREST MEDICAMENT-PER TOOTH 14 ML (Completed) Service provider: Naveed Aguayo DDS Billing provider: Naveed Aguayo DDS Topical Anesthetic: None Local Anesthetic: None Injection administered: None Isolation used: Cotton roll Excavation of fractured tooth structure completed. No pulpal involvement Details: Etch, Pearson Shade: A2. Contour/[place] Citizen: Yes Verified N/A Post-Op Information Given: verbal Referral: No orders of the following type(s) were placed in this encounter: Referral. Rx: No orders of the defined types were placed in this encounter. Behavior: Compliant DA: Hui Corley NV: Recall Exam - 6 months EMILY Nevarez documented in this encounter Plan of Treatment Upcoming Encounters Date Type Department Care Team (Late st Contact Info) Description 01/09/2025 1:40 PM EDT Office Visit [address] [phone] Siva Campos RHD [address] [place] [address] documented as of this encounter Procedures Procedure Name Priority Date/Time Associated Diagnosis Comments 14 ML APPLICATION CARIES ARREST MEDICAMENT-PER TOOTH Routine 08/15/2024 4:20 PM EST Caries of enamel (incipient) 14 B(V) RESIN-BASED COMPOSITE - ONE SURFACE POSTERIOR Routine 08/15/2024 4:20 PM EST Caries of enamel (incipient) documented in this encounter Visit Diagnoses Diagnosis Caries of enamel (incipient)- Primary Dental caries limited to enamel documented in this encounter
== END 2024-09-01 10:21 | disposition home or self-care (01) ==
PROVIDERS: PCP Internal Medicine; Visit Provider Surgery
DX: Z12.11 Encounter for screening for malignant neoplasm of colon (principal)
CPT/HCPCS: 99212

== ENCOUNTER → 2024-09-01 10:07 | Outpatient (BNVA) | payer MEDICAID, SELFPAY | PROVIDERS: PCP Internal Medicine; Visit Provider Surgery | DX: Z12.11 Encounter for screening for malignant neoplasm of colon (principal) | CPT/HCPCS: 99212 ==

== ENCOUNTER → 2024-09-05 08:56 | Outpatient (BNVA) | payer MEDICAID, SELFPAY | PROVIDERS: PCP Internal Medicine | DX: Z01.818 Encounter for other preprocedural examination (principal) ==

== ENCOUNTER → 2024-09-13 11:11 | Outpatient (BNV) | payer MEDICAID, SELFPAY | PROVIDERS: PCP Internal Medicine; Visit Provider Radiology Diagnostic Radiology | DX: Z86.15 Personal history of latent tuberculosis infection (principal); Z01.811 Encounter for preprocedural respiratory examination | CPT/HCPCS: 71046 ==

== ENCOUNTER 2024-09-15 11:36 | Outpatient (REF) | payer MEDICAID, SELFPAY ==
[2024-09-15 13:17] LABS: Appearance Urine Clear; Color Urine Yellow; Glucose Urine UA Negative (Negative); Leukocyte Esterase Urine Negative (Negative); Nitrite Urine Negative (Negative); PH 5.5 (5.0-9.0); Urine Blood Negative (Negative); Urine Ketones Negative (Negative); Urine Protein Negative (Neg-Trace)
[2024-09-15 13:24] LABS: Bacteria Urine None Seen (None Seen); Hyaline Casts Urine 0-2 /LPF (0-2); RBC Urine 0-2 /HPF (0-2); Squamous Epithelial Cell Urine 0-2 /HPF (0-2); WBC Urine 0-5 /HPF (0-5)
[2024-09-15 13:25] LABS: MANUAL DIFF FLAG NO
[2024-09-15 13:31] LABS: Basophils Percent Auto 0.4 % (0-2); Eosinophils Absolute Auto 0.5 X10*3/uL (0.0-0.4); Eosinophils Percent Auto 4.7 % (0-4); Hematocrit 42.6 % (42.0-52.0); Hemoglobin 14.5 g/dl (14.0-18.0); Imm Gran Abs Auto 0.03 X10*3/uL (0.00-0.03); Imm Gran Pct Auto 0.3 % (0.0-0.4); Lymphocytes Absolute Auto 2.9 X10*3/uL (1.2-4.9); Lymphocytes Percent Auto 28.3 % (20-40); Mean Corpuscular Hemoglobin 32.1 pg (27.0-33.0); Mean Corpuscular Volume 94.2 fL (80.0-98.0); Mean Platelet Volume 10.1 fL (9.4-12.4); Monocytes Absolute Auto 0.9 X10*3/uL (0.1-1.2); Monocytes Percent Auto 8.6 % (2-11); Neutrophils Absolute Auto 5.9 x10*3/uL (2.0-8.3); Neutrophils Percent Auto 57.7 % (45-73); Platelet Count 283 X10*3/uL (160-400); Red Blood Count 4.52 X10*6/uL (4.60-5.80); Red Cell Distribution Width 13.7 % (11.0-16.0); White Blood Count 10.3 X10*3/uL (4.8-10.8)
[2024-09-15 13:32] LABS: Basophils Percent Auto 0.3 % (0-2); Eosinophils Absolute Auto 0.4 X10*3/uL (0.0-0.4); Eosinophils Percent Auto 4.3 % (0-4); Hematocrit 41.5 % (42.0-52.0); Hemoglobin 14.5 g/dl (14.0-18.0); Imm Gran Abs Auto 0.02 X10*3/uL (0.00-0.03); Imm Gran Pct Auto 0.2 % (0.0-0.4); Lymphocytes Absolute Auto 2.9 X10*3/uL (1.2-4.9); Lymphocytes Percent Auto 28.8 % (20-40); Mean Corpuscular HGB Conc 34.9 g/dl (31.0-36.0); Mean Corpuscular Hemoglobin 32.2 pg (27.0-33.0); Mean Corpuscular Volume 92.2 fL (80.0-98.0); Monocytes Absolute Auto 0.9 X10*3/uL (0.1-1.2); Monocytes Percent Auto 8.8 % (2-11); Neutrophils Absolute Auto 5.9 x10*3/uL (2.0-8.3); Neutrophils Percent Auto 57.6 % (45-73); Platelet Count 284 X10*3/uL (160-400); Red Cell Distribution Width 13.7 % (11.0-16.0); White Blood Count 10.2 X10*3/uL (4.8-10.8)
[2024-09-15 13:48] LABS: Cholesterol 108 mg/dL (<200); HDL Cholesterol 34 mg/dL (>40); LDL Cholesterol Calculated 29 mg/dL (<100); Triglycerides 228 mg/dL (<150)
[2024-09-15 13:54] LABS: Alanine Aminotransferase 34 U/L (0-40); Albumin Level 4.3 g/dL (3.5-5.0); Anion Gap 11 (12-20); Aspartate Amino Transferase 25 U/L (5-37); Bilirubin Total 0.5 mg/dL (0.0-1.0); Blood Urea Nitrogen 13 mg/dL (9-16); Calcium 9.1 mg/dL (8.4-10.2); Carbon Dioxide 25 mmol/L (22-29); Chloride 110 mmol/L (96-108); Estimated Glomerular Filt Rate > 60; Glucose Random 85 mg/dL (60-115); Potassium 4.1 mmol/L (3.3-5.1); Sodium 142 mmol/L (135-145)
[2024-09-15 14:00] LABS: Estimated Average Glucose 114 mg/dL; Hemoglobin A1c % 5.6 % (<6.0); Total Hemoglobin (HGBA1C) 3770.3919 umol/L
[2024-09-15 14:22] LABS: Folate 6.5 ng/mL (> or = 4.0); Vitamin B12 1571 pg/mL (200-900)
--- OUTSIDE RECORDS SUMMARY | 2024-09-15 15:02 | XMS_ITS | Clinical Summary ---
Author Organization [facility] Address [address] [place] [address] Care Team Providers Care Carroter Name Role Phone Unavailable Primary Care Provider [...] 1.1 % gelIndications: Caries of enamel (incipient) [place] twice daily and expectorate. Do not rinse. 56 g 4 04/29/2024 Active Active Problems Problem Noted Date Diagnosed Date Fitting and adjustment of dental prosthetic dayday ce 05/05/2023 History of hip replacement 08/08/2022 Encounters Date Type Department Care Team Description 08/15/2024 4:20 PM EST Office Visit [facility] [address] [place] [phone] Naveed Aguayo DDS Caries of enamel (incipient) (Primary Dx) 08/09/2024 3:00 PM EST Office Visit [facility] [address] [place] [phone] Naveed Aguayo DDS Caries (Primary Dx); Caries of enamel (incipient) 07/29/2024 11:20 AM EST Office Visit [facility] [address] [place] [phone] Naveed Aguayo DDS Caries of enamel (incipient) (Primary Dx); Defective dental roman catholic; Dental caries on smooth surface penetrating into dentin from Last 3 Months Social History Tobacco [...] Description 01/09/2025 1:40 PM EDT Office Visit [facility] [address] [place] [phone] Siva Campos, NISHA [address] [place] [address] Health Maintenance Due Date Last Done Comments [...] 2) 2021 Tobacco Cessation Counseling (#1) 10/06/2023 [id number] ( season) 2024 021, 09/05/2020 Imm-Influenza (#1) 2024 07/03/2020, 1 , 06/03/2018, Additional history exists Alcohol and Drug Screen 07/06/2024 Depression Annual Screen 07/06/2024 Dental BW 04/30/2025 04/28/2024, 04/2 10/2023, 05/04/2023, Additional history exists Dental Examination 04/30/2025 04/28/2024, 0 10/28/2023, 05/04/2023, Additional history exists Dental Perio Charting 04/30/2025 04/28/2024 , 10/28/2023, 05/04/2023 Dental Prophy 04/30/2025 04/28/2024, 10/05, 05/04/2023, Additional history exists Hypertension Screening (#1) 08/09/2025 Dental FMX/Pano 08/10/2027 08/08/2022 Imm-Hepatitis A Completed 02/13/2006, 04/11/2005 Imm-Hepatitis B Completed 02/13/2006, 030 03/2006, 08/14/2005 Procedures Procedure Name Priority Date/Time Associated Diagnosis Comments 14 ML APPLICATION CARIES ARREST MEDICAMENT-PER TOOTH Routine 08/15/2024 4:20 PM EST Caries of enamel (incipient) 14 B(V) RESIN-BASED COMPOSITE - ONE SURFACE POSTERIOR Routine 08/15/2024 4:20 PM EST Caries of enamel (incipient) 18 B(V) RESIN-BASED COMPOSITE - ONE SURFACE POSTERIOR Routine 08/09/2024 3:00 PM EST Caries Caries of enamel (incipient) 30 MOD RESIN-BASED COMPOSITE - THREE SURFACES POSTERIOR Routine 07/29/2024 11:20 AM EST Caries of enamel (incipient) Dental caries on smooth surface penetrating into dentin Defective dental roman catholic 29 DO RESIN-BASED COMPOSITE - TWO SURFACES POSTERIOR Routine 07/29/2024 11:20 AM EST Defective dental roman catholic Dental caries on smooth surface penetrating into dentin Caries of enamel (incipient) 31 MO RESIN-BASED COMPOSITE - TWO SURFACES POSTERIOR Routine 07/29/2024 11:20 AM EST Caries of enamel (incipient) Defective dental roman catholic Dental caries on smooth surface penetrating into dentin BITEWINGS - FOUR RADIOGRAPHIC IMAGES Routine 04/28/2024 [...] Most Recently Relevant to Health Maintenance Insurance [place] MEDICAID DENT[place]
[2024-09-15 15:03] LABS: Alkaline Phosphatase 102 U/L (39-117)
[2024-09-15 15:56] LABS: CT PCR NOT DETECTED (Not Detect.); NG PCR NOT DETECTED (Not Detect.)
[2024-09-15 19:56] LABS: Reflex LDLD? No
[2024-09-16 04:19] LABS: HBc Num1 0.11 S/CO (0.00-0.79); Hepatitis B Core Antibody Nonreactive (Nonreactive); ~Hepatitis B Surface Antibody REACTIVE (Nonreactive)
[2024-09-16 14:48] LABS: HIV RNA PCR Qn Copies 403 copies/mL (NOT DETECTED); HIV RNA PCR Qn Log Copies 2.61 (NOT DETECTED)
[2024-09-17 16:47] LABS: RPR Rapid Plasma Reagin REACTIVE (NON-REACTIVE)
[2024-09-18 23:42] LABS: TS Negative Control Passed; TS Panel A 0; TS Panel B 0; TS Positive Control Passed; TSpotTB Negative (Negative)
[2024-09-19 23:58] LABS: Absolute CD3 Count 2484 cells/uL (840-3060); Absolute CD4 Count 1165 cells/uL (490-1740); Absolute CD8 Count 1334 cells/uL (180-1170); Absolute Lymphocytes 2926 cells/uL (850-3900); CD4 CD8 Ratio 0.87 (0.86-5.00); Percent CD3 Cells 85 % (57-85); Percent CD4 Cells 40 % (30-61); Percent CD8 Cells 46 % (12-42)
[2024-09-21 08:55] LABS: Hepatitis A Antibody IgG REACTIVE (Nonreactive); ~Hepatitis A Antibody IgG 6.48 S/CO (0.00-0.99)
== END 2024-09-15 11:37 | disposition home or self-care (01) ==
LOC: HO.HHCL 11:36
PROVIDERS: Student in an Organized Health Care Education/Training Program; Visit Provider Internal Medicine
DX: Z01.818 Encounter for other preprocedural examination (principal); G25.81 Restless legs syndrome; Z21 Asymptomatic human immunodeficiency virus [HIV] infection status
CPT/HCPCS: 36415; 80053; 80061; 81001; 82607; 82746; 83036; 85025; 86359; 86360; 86481; 86592; 86593; 86704; 86706; 86708; 86787; 87491; 87536; 87591

== ENCOUNTER 2024-10-06 08:23 | Outpatient (REF) | payer MEDICAID, SELFPAY ==
--- NOTE | ~2024-10-06 | XR_ITS ---
EXAMINATION: XR HIP, LEFT CLINICAL INFORMATION: M25.552 - Pain in left hip COMPARISON: August 01, 2024. TECHNIQUE: Two views of the left hip. FINDINGS: Sclerosis along the articular surface of the left acetabulum and left femoral head with asymmetric joint space narrowing. No acute cortical disruption or malalignment. No lytic or blastic lesions. Bony pelvis is intact. Status post total right hip arthroplasty prosthesis no abrupt within the [id number]. XR/XR hip LT min 2V IMPRESSION: Moderate to severe osteoarthrosis, left hip. Electronically signed by: Dipak Garcia MD 10/07/2024 08:59 AM EDT
--- OUTSIDE RECORDS SUMMARY | 2024-10-06 08:30 | XMS_ITS | Clinical Summary ---
Author Organization [facility] Address [address] [place] [address] Care Team Providers Care Auto Battery Builder Name Role Phone Unavailable Primary Care Provider [...] 1.1 % gelIndications: Caries of enamel (incipient) [place] twice daily and expectorate. Do not rinse. 56 g 4 04/29/2024 Active Active Problems Problem Noted Date Diagnosed Date Fitting and adjustment of dental prosthetic dayday ce 05/05/2023 History of hip replacement 08/08/2022 Encounters Date Type Department Care Team Description 08/15/2024 4:20 PM EST Office Visit [facility] [address] [place] [phone] Naveed Aguayo DDS Caries of enamel (incipient) (Primary Dx) 08/09/2024 3:00 PM EST Office Visit [facility] [address] [place] [phone] Naveed Aguayo DDS Caries (Primary Dx); Caries of enamel (incipient) 07/29/2024 11:20 AM EST Office Visit [facility] [address] [place] [phone] Naveed Aguayo DDS Caries of enamel (incipient) (Primary Dx); Defective dental christian; Dental caries on smooth surface penetrating into [...] Description 01/09/2025 1:40 PM EDT Office Visit [facility] [address] [place] [phone] Siva Campos, NISHA [address] [place] [address] Health Maintenance Due Date Last Done Comments [...] 2) 2021 Tobacco Cessation Counseling (#1) 10/06/2023 [id number] ( season) 2024 021, 09/05/2020 Imm-Influenza (#1) [...] smooth surface penetrating into dentin Defective dental christian 29 DO RESIN-BASED COMPOSITE - TWO SURFACES POSTERIOR Routine 07/29/2024 11:20 AM EST Defective dental christian Dental caries on smooth surface penetrating into dentin Caries of enamel (incipient) 31 MO RESIN-BASED COMPOSITE - TWO SURFACES POSTERIOR Routine 07/29/2024 11:20 AM EST Caries of enamel (incipient) Defective dental christian Dental caries on smooth surface penetrating into [...] Most Recently Relevant to Health Maintenance Insurance [place] MEDICA[place]
[2024-10-06 11:27] LABS: Anion Gap 13 (12-20); Blood Urea Nitrogen 26 mg/dL (9-16); Calcium 9.6 mg/dL (8.4-10.2); Carbon Dioxide 23 mmol/L (22-29); Chloride 107 mmol/L (96-108); Estimated Glomerular Filt Rate > 60; Glucose Random 64 mg/dL (60-115); Potassium 4.1 mmol/L (3.3-5.1); Sodium 139 mmol/L (135-145)
== END 2024-10-06 08:24 | disposition home or self-care (01) ==
LOC: HO.HOSX 08:23
PROVIDERS: Internal Medicine; Visit Provider Physician Assistant
DX: Z01.818 Encounter for other preprocedural examination (principal); M25.552 Pain in left hip; M16.12 Unilateral primary osteoarthritis, left hip
CPT/HCPCS: 36415; 73502; 80048; 99212

== ENCOUNTER 2024-10-06 08:58 | Outpatient (AMB) | payer MEDICAID, SELFPAY ==
--- NOTE | 2024-10-06 09:20 | MHC.OFFVIS ---
Vital Signs 10/06/24 09:27 Height 5 ft 10 in Weight 164 lb BMI 23.5 Intake Visit Reasons: Pre-Op: L DALJIT w/NE 10/11/24 Intake Note: Jeb is a 54 year old male who presents today for a preoperative LT DALJIT w/NE 10/11/24. Pain management agreement reviewed and signed. Allergies No Known Allergies [No Known Allergies*] Allergy (Verified 10/06/24 09:27) Medication List - Last Reconciled 10/06/24 by Andrew Mera PA-C aspirin 1 tab PO BEDTIME atorvastatin 80 mg PO BEDTIME [id number] ala 50-200-25 mg (Biktarvy) 1 tab PO BEDTIME bupropion HCl XL 300 mg PO QAM clonidine HCl 0.2 mg PO BEDTIME clonidine HCl 0.1 mg PO QAM cyanocobalamin (vitamin B-12) 1,000 mcg PO 3XW diphenhydramine HCl (Banophen) 75 mg PO BEDTIME [Fish Oil 1 g PO BID] lisinopril 5 mg PO QAM metoprolol succinate ER 100 mg PO BEDTIME mirtazapine 15 mg PO BEDTIME olanzapine 10 mg PO DAILY [Raised toilet seat duration - 99 days] [SHOWER CHAIR As directed duration 99 days] walker Folding Front wheeled walker duration 99 days HPI Comments Details: Mr Hunter presents to the office today for preop visit. He is scheduled for left total hip arthroplasty with Dr. Katz. He continues to have ongoing pain and difficulty with ambulation in the left hip, which is affecting his quality of life; therefore, he has elected to move forward with surgery. 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 Atherosclerosis of coronary artery Left arm swelling HTN (hypertension) Mastalgia IFG (impaired fasting glucose) Vitamin D deficiency Hyperglycemia Tobacco dependence syndrome Pure hypercholesterolemia Right arm weakness Mood disorder Insomnia Depression Polysubstance abuse Non-traumatic rhabdomyolysis Nondependent mixed drug abuse in remission Neck pain Mixed hyperlipidemia Hypertriglyceridemia Lipodystrophy CAD (coronary artery disease) Dysplasia of anus Ulcer of foot Chronic ulcer of lower extremity Chronic rhinitis Cellulitis of lower extremity Restless leg Cellulitis of groin Bronchitis COPD (chronic obstructive pulmonary disease) Abnormal CPK Abnormal colonoscopy Colon cancer screening AIN grade I Presence of stent in LAD coronary artery Bipolar 1 disorder Arthritis HIV (human immunodeficiency virus infection) Surgical History History of esophagogastroduodenoscopy (EGD) History of coronary artery stent placement History of colonoscopy (~08/19/24) History of surgery History of right hip replacement (~10/2014) Family History Other Family history unknown Social History Household Members Other:: roomate Are you a primary child care center administrator to a significant other at home: No Do you presently have visiting nurse or other home services: No Unable to assess alcohol history related to: Unknown Patient Tobacco Use Status: Current everyday Tobacco user Tobacco use type: Cigarette Cigarette Packs Per Day: 1.0 Cigarettes Per Day: 20.0 Review of Systems Const All systems reviewed & are unremarkable except as noted in HPI and below Physical Exam Vital Signs: BMI result Body Mass Index 23.5 Const General: cooperative, healthy appearing, comfortable, no acute distress, well developed and alert Orientation/consciousness: patient oriented x3 HEENT Head: Yes normal to inspection, Yes normocephalic and Yes atraumatic Eyes General: appearance normal, both eyes and all related structures Neck Neck: Yes normal visual inspection and Yes no lymphadenopathy Resp Effort & Inspection: normal respiratory effort and able to speak in complete sentences Cardio Rate: regular rate Peripheral pulses: Peripheral pulses 2+ throughout GI Inspection: Yes normal to inspection Palpation (GI): Soft to palpation Skin General skin exam: no rashes or lesions noted Neuro General: patient oriented x3 Extrem Other: Left hip skin intact, no open wounds. + impingement 110 flexion +gait antalgia Psych Appearance: grossly normal Mental Status: mental status grossly normal Results Reviewed Results Reviewed: Xrays were obtained in the office today and personally reviewed by me of the right hip for preop planning Assessment & Plan Assessment & Plan (1) Osteoarthritis of left hip: Code(s): M16.12 - Unilateral primary osteoarthritis, left hip Category: Medical Plan: I discussed in detail the procedure and what to expect pre and post operatively. We discussed the risks, benefits and alternatives to the surgery as well as the rehabilitation course. The risks; which include, but are not limited to infection, bleeding, nerve injury, ongoing pain, swelling, and stiffness, perioperative risk of injury to bones and soft tissues, and blood clots. I?ve answered all questions and with their understanding they have consented to move forward with Left total hip arthroplasty with Dr. Katz Plan to DC home with VNA ASA post op Orders: Orders XR hip LT min 2V Today M25.552 - Pain in left hip PT Evaluation and Treatment Today Z96.642 - Presence of left artificial hip joint Coding Level of Care Code Est Pt Level 3 (33019) Complex EM visit Add On G2211 Diagnoses Osteoarthritis of left hip M16.12
[2024-10-06 09:27] VITALS: BMI 23.5
== END 2024-10-06 10:08 | disposition home or self-care (01) ==
LOC: HO.HOS 08:58
PROVIDERS: PCP Internal Medicine; Visit Provider Physician Assistant
DX: M16.12 Unilateral primary osteoarthritis, left hip (principal)
CPT/HCPCS: 99024

== ENCOUNTER → 2024-10-06 09:06 | Outpatient (BNV) | payer MEDICAID, SELFPAY | PROVIDERS: Visit Provider Radiology Diagnostic Radiology | DX: M16.12 Unilateral primary osteoarthritis, left hip (principal) | CPT/HCPCS: 73502 ==

== ENCOUNTER 2024-10-11 06:00 | Day surgery (SDC) | payer MEDICAID, SELFPAY ==
[2024-09-13 10:34] VITALS: BP 112/62; PULSE 70; RESP 18; O2SAT 96; BMI 25.0
--- NOTE | 2024-09-13 10:48 | P.CONAN_ITS ---
Documented by User: Kay Palomino NP 10/10/24 13:34 HPI - Anesthesia Eval Consult details Narrative: 54yo M for Left Hip Total Replacement, 10/11/24 Cardiac optimized. Follows [facility] Cardiology for CAD s/p AL 2008, stent 2011. 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 Neg CXR Pt reports injury with first intubation ~ 2008, has required small ETT with subsequent intubations. From 2015 anesthesia record s/p previous surgery small ETT 6.5, Grade IV MAC 3, Grade III Mac 4 PMFSH Active Problems Active Problems: All Active Problems Osteoarthritis of left hip (Acute) Colon cancer screening (Acute) AIN grade I (Acute) Past Medical History Medical History History of MRSA infection Anemia Difficulty swallowing Acid reflux Clifford's palsy Sleep apnea Murmur Myocardial infarction History of syphilis Hypogonadism in male Gynecomastia, male Latent tuberculosis by skin test Atherosclerosis of coronary artery Left arm swelling HTN (hypertension) Mastalgia IFG (impaired fasting glucose) Vitamin D deficiency Hyperglycemia Tobacco dependence syndrome Pure hypercholesterolemia Right arm weakness Mood disorder Insomnia Depression Polysubstance abuse Non-traumatic rhabdomyolysis Nondependent mixed drug abuse in remission Neck pain Mixed hyperlipidemia Hypertriglyceridemia Lipodystrophy CAD (coronary artery disease) Dysplasia of anus Ulcer of foot Chronic ulcer of lower extremity Chronic rhinitis Cellulitis of lower extremity Restless leg Cellulitis of groin Bronchitis COPD (chronic obstructive pulmonary disease) Abnormal CPK Abnormal colonoscopy Colon cancer screening AIN grade I Presence of stent in LAD coronary artery Bipolar 1 disorder Arthritis HIV (human immunodeficiency virus infection) Family History Family History Other Family history unknown Family history of problems with anesthesia: No Surgical History Surgical History History of esophagogastroduodenoscopy (EGD) History of coronary artery stent placement History of colonoscopy (~08/19/24) History of surgery History of right hip replacement (~10/2014) History of Problems with Anesthesia: No Social History Social History Household Members Other:: roomate Are you a primary life care planner to a significant other at home: No Do you presently have visiting nurse or other home services: No Unable to assess alcohol history related to: Unknown Patient Tobacco Use Status: Current everyday Tobacco user Tobacco use type: Cigarette Cigarette Packs Per Day: 1.0 Cigarettes Per Day: 20.0 Use of substances other than those prescribed or required for medical reasons: No Have you been hit, kicked, punched, or otherwise hurt by someone within the past year? If so, by whom?: No Are you DNR?: No Advance Directives: No Advance Directives Information Provided: Yes Advance Directives on File: No Recently lost weight without trying: No Eating poorly because of decreased appetite: No Nutrition Risks: No Nutritional Risk and Difficulty swallowing Poor oral hygiene: Yes (partial upper and lower denture) Meds Allergies Allergy/AdvReac Type Severity Reaction Status Date / Time No Known Allergies Allergy Verified 10/06/24 09:27 [No Known Allergies*] Home Medications ?Medication ?Instructions ?Recorded ?Confirmed ?Last Taken ?Type aspirin 81 mg chewable tablet 1 tab PO BEDTIME 01/11/24 10/11/24 10/03/24 History atorvastatin 80 mg tablet 80 mg PO BEDTIME 01/11/24 10/11/24 10/10/24 History bictegravir 50 mg-emtricitabine 1 tab PO BEDTIME 01/11/24 10/11/24 10/10/24 History 200 mg-tenofovir alafenam 25 mg tablet (Biktarvy) bupropion HCl 300 mg 24 hr tablet, 300 mg PO QAM 01/11/24 10/11/24 10/10/24 History extended release clonidine HCl 0.1 mg tablet 0.1 mg PO QAM 01/11/24 10/11/24 10/10/24 History cyanocobalamin (vitamin B-12) 1,000 mcg PO 3XW 01/11/24 10/11/24 10/10/24 History 1,000 mcg tablet lisinopril 5 mg tablet 5 mg PO QAM 01/11/24 10/11/24 10/10/24 History metoprolol succinate 100 mg 100 mg PO BEDTIME 01/11/24 10/11/24 10/10/24 History tablet,extended release 24 hr mirtazapine 15 mg tablet 15 mg PO BEDTIME 01/11/24 10/11/24 10/10/24 History olanzapine 10 mg tablet 10 mg PO DAILY 01/11/24 10/11/24 10/10/24 History Fish Oil 1 g PO BID 08/01/24 10/11/24 10/10/24 History clonidine HCl 0.2 mg tablet 0.2 mg PO BEDTIME 09/13/24 10/11/24 10/10/24 History diphenhydramine HCl 25 mg capsule 75 mg PO BEDTIME 09/13/24 10/11/24 10/10/24 History (Banophen) Exam Height,Weight and Vital Signs: Height 5 ft 9 in Weight 76.657 kg Last Vital Signs Pulse 70 09/13/24 10:34 Resp 18 09/13/24 10:34 BP 112/62 09/13/24 10:34 Pulse Ox 96 09/13/24 10:34 O2 Del Method Room Air 09/13/24 10:34 Pertinent Lab Results Pertinent Lab Results: Lab Results 09/13/24 10/06/24 Range/Units 10:45 09:54 Nasal Screen MRSA (PCR) NEGATIVE (Negative) Nasal S. aureus Screen POSITIVE A (Negative) Nasal MRSA/S.aureus Interp SEE NOTE Blood Type O Positive Antibody Screen NEGATIVE Laboratory Tests 09/15/24 10/06/24 11:42 10:01 WBC 10.2 Hgb 14.5 Hct 41.5 L Plt Count 284 Sodium 139 Potassium 4.1 Chloride 107 Carbon Dioxide 23 BUN 26 H Creatinine 1.08 Narrative Narrative: EKG 07/2024 SR @ 79 XR chest 2V 09/2024 IMPRESSION: No acute airspace disease. Stable. Airway Partial: Upper and Lower Heart: RRR Lungs: CTAB Assessment and Plan Assessment Anesthesia Assessment: Anesthesia Plan Discussed, Smoking Cess. Discussed and PAT Visit Final Anesthetic Review Family History of Problems with Anesthesia: No History of Problems with Anesthesia: No Documented by User: Clair Sharma MD 10/11/24 07:30 [facility] Past Medical History Medical History History of MRSA infection Anemia Difficulty swallowing Acid reflux Clifford's palsy Sleep apnea Murmur Myocardial infarction History of syphilis Hypogonadism in male Gynecomastia, male Latent tuberculosis by skin test Atherosclerosis of coronary artery Left arm swelling HTN (hypertension) Mastalgia IFG (impaired fasting glucose) Vitamin D deficiency Hyperglycemia Tobacco dependence syndrome Pure hypercholesterolemia Right arm weakness Mood disorder Insomnia Depression Polysubstance abuse Non-traumatic rhabdomyolysis Nondependent mixed drug abuse in remission Neck pain Mixed hyperlipidemia Hypertriglyceridemia Lipodystrophy CAD (coronary artery disease) Dysplasia of anus Ulcer of foot Chronic ulcer of lower extremity Chronic rhinitis Cellulitis of lower extremity Restless leg Cellulitis of groin Bronchitis COPD (chronic obstructive pulmonary disease) Abnormal CPK Abnormal colonoscopy Colon cancer screening AIN grade I Presence of stent in LAD coronary artery Bipolar 1 disorder Arthritis HIV (human immunodeficiency virus infection) Family History Family History Other Family history unknown Surgical History Surgical History History of esophagogastroduodenoscopy (EGD) History of coronary artery stent placement History of colonoscopy (~08/19/24) History of surgery History of right hip replacement (~10/2014) Social History Social History Household Members Other:: roomate Are you a primary life care planner to a significant other at home: No Do you presently have visiting nurse or other home services: No Unable to assess alcohol history related to: Unknown Patient Tobacco Use Status: Current everyday Tobacco user Tobacco use type: Cigarette Cigarette Packs Per Day: 1.0 Cigarettes Per Day: 20.0 Use of substances other than those prescribed or required for medical reasons: No Have you been hit, kicked, punched, or otherwise hurt by someone within the past year? If so, by whom?: No Are you DNR?: No Advance Directives: No Advance Directives Information Provided: Yes Advance Directives on File: No Recently lost weight without trying: No Eating poorly because of decreased appetite: No Nutrition Risks: No Nutritional Risk and Difficulty swallowing Poor oral hygiene: Yes (partial upper and lower denture) Meds Allergies Allergy/AdvReac Type Severity Reaction Status Date / Time No Known Allergies Allergy Verified 10/06/24 09:27 [No Known Allergies*] Home Medications ?Medication ?Instructions ?Recorded ?Confirmed ?Last Taken ?Type aspirin 81 mg chewable tablet 1 tab PO BEDTIME 01/11/24 10/11/24 10/03/24 History atorvastatin 80 mg tablet 80 mg PO BEDTIME 01/11/24 10/11/24 10/10/24 History bictegravir 50 mg-emtricitabine 1 tab PO BEDTIME 01/11/24 10/11/24 10/10/24 History 200 mg-tenofovir alafenam 25 mg tablet (Biktarvy) bupropion HCl 300 mg 24 hr tablet, 300 mg PO QAM 01/11/24 10/11/24 10/10/24 History extended release clonidine HCl 0.1 mg tablet 0.1 mg PO QAM 01/11/24 10/11/24 10/10/24 History cyanocobalamin (vitamin B-12) 1,000 mcg PO 3XW 01/11/24 10/11/24 10/10/24 History 1,000 mcg tablet lisinopril 5 mg tablet 5 mg PO QAM 01/11/24 10/11/24 10/10/24 History metoprolol succinate 100 mg 100 mg PO BEDTIME 01/11/24 10/11/24 10/10/24 History tablet,extended release 24 hr mirtazapine 15 mg tablet 15 mg PO BEDTIME 01/11/24 10/11/24 10/10/24 History olanzapine 10 mg tablet 10 mg PO DAILY 01/11/24 10/11/24 10/10/24 History Fish Oil 1 g PO BID 08/01/24 10/11/24 10/10/24 History clonidine HCl 0.2 mg tablet 0.2 mg PO BEDTIME 09/13/24 10/11/24 10/10/24 History diphenhydramine HCl 25 mg capsule 75 mg PO BEDTIME 09/13/24 10/11/24 10/10/24 History (Banophen) Exam Airway Mallampati Class: II TM Dist: <=3cm Neck ROM: Full Assessment and Plan Assessment Anesthesia Assessment: Chart Reviewed Final Anesthetic Review NPO: Yes ASA Class: III Final Preanesthetic Review: No Changes in Pt Med Stat, Meds/Allgs Chart Reviewed, Consent Obtained/Reviewed and Anes Risks/Benef Reviewed Patient Risk: Intermediate Procedure Risk: Intermediate Anesthetic Plan Anesthetic Plan: GA Disposition: Standard PACU
[2024-09-13 13:01] LABS: MRSA Nasal PCR NEGATIVE (Negative); SA Nasal PCR POSITIVE (Negative)
[2024-10-11] VITALS (27 sets, daily range): BP systolic 85–114; BP diastolic 47–71; PULSE 64–91; RESP 12–20; TEMP 36.1–36.8; O2SAT 95–99; BMI 25.1; BMI 27.1
--- NOTE | ~2024-10-11 | XR_ITS ---
EXAMINATION: XR PELVIS CLINICAL INFORMATION: lt migue COMPARISON: 10/06/2024. TECHNIQUE: AP view of the pelvis. FINDINGS: There is been a total left hip arthroplasty. Femoral, and acetabular components are intact, well seated, in anatomic alignment. No periprosthetic fracture or complication. There are skin dayna in the lateral aspect. There is a total right arthroplasty in place without complication. Normal alignment. No soft tissue abnormalities. XR/XR pelvis 1-2V IMPRESSION: Total left hip arthroplasty without complication. Electronically signed by: Isaias Mcdowell MD 10/11/2024 12:07 PM EDT
--- NOTE | ~2024-10-11 | XR_ITS ---
EXAMINATION: XR CHEST CLINICAL INFORMATION: Hx Latent TB, Preop COMPARISON: August 04, 2022. TECHNIQUE: 2 views of the chest were obtained. FINDINGS: No consolidation, pleural effusion or pneumothorax. Cardiomediastinal silhouette is normal. Mild multilevel thoracic and upper lumbar spondylosis. Degenerative changes in the right acromioclavicular joint. XR/XR chest 2V IMPRESSION: No acute airspace disease. Stable. Electronically signed by: Dipak Garcia MD 09/13/2024 03:03 PM EDT
--- NOTE | 2024-10-11 06:39 | MHC.SHP ---
Pre-Procedural Eval Section A - 24 Hr Update-Section A only Date of Service: 10/11/24 The patient is an INPATIENT: No Changes since office visit: No Cold of Flu in the past 2 weeks, No New Medical Problems, No Changes in Medication and No Patient answered all questions The patient has been examined within 24 hours of the surgical procedure. The History & Physical has been completed within 30 days and I have reviewed it.: Yes Section B - Complete if H&P > 30 days Chief Complaint: Unilateral primary osteoarthritis, left hip Allergies: Allergies Allergy/AdvReac Type Severity Reaction Status Date / Time No Known Allergies Allergy Verified 10/06/24 09:27 [No Known Allergies*] Plan I have reviewed the history and physical and performed a pertinent physical examination on my patient. No changes have occurred unless specified. Time Spent With Patient Time: Total time managing care of this patient today ____ minutes.
[2024-10-11] MEDS: oxyCODONE HCl ER 10 MG TAB.ER.12H PO ×2 (06:51→20:45)
[2024-10-11] MEDS: Lactated Ringers 1,000 ML 100 ML IVCONT ×3 (07:32→23:27)
[2024-10-11] MEDS: ceFAZolin Sodium/Dextrose,Iso 2 GM/50 ML PIGGYBACK IV ×2 (07:40→13:32)
[2024-10-11] MEDS: Acetaminophen 1,000 MG/100 ML PIGGYBACK 400 MG IV (07:40)
--- NOTE | 2024-10-11 09:01 | PM.DS ---
DS: Providers Provider Date of Service: 10/12/24 Date of discharge: 10/12/24 Primary care physician: Sabine Song MD DS: Summary Hospital Course Hospital Course: The patient underwent a successful left total hip arthroplasty, they were transferred to PACU and then to the floor to recover. During their stay, their vitals were stable, afebrile at 98.2. Labs were unremarkable, H/H 10.6/30.8. POD 1 they were started on Aspirin 325mg po bid for DVT ppx, they also received Physical Therapy services. Prior to discharge, their dressing was clean dry and intact, and the plan was to be discharged home with VNA services. Time Attestation Discharge Coordination Time (in mins): 30 Quality: Safe Use of Opioids Does Pt have an Active Cancer Diagnosis on the Problem List?: No Quality: Stroke Does the patient have a stroke diagnosis?: No Physical Exam Vital Signs: Vital Signs: Last Vital Signs Temp 97.6 F 10/11/24 06:38 Pulse 73 10/11/24 06:38 Resp 16 10/11/24 06:38 BP 112/69 10/11/24 06:38 Pulse Ox 96 10/11/24 06:38 O2 Del Method Room Air 10/11/24 06:38 BMI result Body Mass Index 25.1 Const: General: cooperative, healthy appearing and no acute distress Resp: Effort & Inspection: normal respiratory effort and able to speak in complete sentences Cardio: Rate: regular rate Peripheral pulses: Peripheral pulses 2+ throughout GI: Palpation (GI): Soft to palpation Skin: Lesions: no lesions Rashes: no rashes Extrem: Other: left hip dressing is c/d/i. Able to dorsi/plantar flex. Calf is supple and nontender. Sensation intact. Pedal pulse intact. Discharge Plan Discharge Patient Disposition: Home Health Service Referrals: Kayley Dill PA-C [Physician [employer]] - 10/27/24 12:30 pm Discharge Medications: New celecoxib 200 mg Capsule 200 mg PO BID 30 Days Qty: 60 0RF acetaminophen 325 mg Tablet 650 mg PO Q6H PRN (Reason: Pain, Mild 1-3,Fever,Headache) 30 Days Qty: 240 0RF aspirin 325 mg Tablet 325 mg PO BID 42 Days Qty: 84 0RF docusate sodium 100 mg Capsule 100 mg PO BID 30 Days Qty: 60 0RF oxycodone 5 mg Tablet 5 mg PO Q4H PRN (Reason: Pain, Moderate(Pain Scale 4-6)) 7 Days Qty: 42 0RF Rx Instructions: Partial Fill upon patient request. Continued (DME) walker Misc See Rx Instructions .MEDSUPPLY Qty: 1 0RF Rx Instructions: Folding Front wheeled walker duration 99 days (DME) SHOWER CHAIR See Rx Instructions .ROUTE .MEDSUPPLY Qty: 1 0RF Rx Instructions: As directed duration 99 days (DME) Raised toilet seat See Rx Instructions .ROUTE .MEDSUPPLY Qty: 1 0RF Rx Instructions: duration - 99 days clonidine HCl 0.2 mg tablet 0.2 mg PO BEDTIME diphenhydramine HCl [Banophen] 25 mg Capsule 75 mg PO BEDTIME omega-3 acid ethyl esters 1 gram capsule 1 cap PO BID olanzapine 10 mg tablet 10 mg PO DAILY Biktarvy 50-200-25 mg tablet 1 tab PO BEDTIME lisinopril 5 mg tablet 5 mg PO DAILY clonidine HCl 0.1 mg tablet 0.1 mg PO DAILY cyanocobalamin (vitamin B-12) 1,000 mcg tablet 1,000 mcg PO [id number]@0900 metoprolol succinate 100 mg tablet extended release 24 hr 100 mg PO BEDTIME atorvastatin 80 mg tablet 80 mg PO BEDTIME mirtazapine 15 mg tablet 15 mg PO BEDTIME bupropion HCl 300 mg tablet extended release 24 hr 300 mg PO DAILY Discontinued aspirin 81 mg tablet,chewable 1 tab PO BEDTIME Discharge Orders: Discharge Order (Routine); Ordered 10/12/24 Ordered By: Kayley Dill Diet: Advance to usual diet Activity on Discharge: Use cane or walker Activity Restrictions/Additional Instructions: Physical Therapy for total hip arthroplasty: posterior precautions, gait training, ROM, strength Limit stair climbing No showering, no tub bath-keep dressing clean, dry and intact No driving x6 weeks Continue ASA tabs once a day x 6 weeks Follow up with [facility] in 2 weeks Print Language: Comoran
--- NOTE | 2024-10-11 09:03 | P.F2F_ITS ---
Service Date Service Date: 10/11/24 Encounter Date of encounter: 10/12/24 Reasons for Services Signs and symptoms assessed: s/p LTHA Pt. is considered homebound due to recent surgery. Unable to drive, poor balance, poor gait mechanics. Reason for physical therapy: home safety and mobility, therapeutic exercises, restore joint function, gait/transfer training and ADL training Reason for occupational therapy: home safety and mobility, therapeutic exercises, restore joint function, gait/transfer training and ADL training Homebound: Leaving the home is medically contraindicated at this time without the asist of a device and/or another person due th the listed conditions above and below. Reason homebound: unsteady gait / fall risk, leg weakness, pain with ambulation, pain with transfers, poor balance / fall risk and unable to drive Certification: Based on the above findings, I certify that this patient is confined to the home and needs intermittent detention care, physical therapy and/or speech therapy, or continues to need occupational therapy. The patient is under my care, and I have initiated the establishment of the plan of care. The patient will be followed by a physician who will periodically review the plan of care. Time Spent With Patient Time: Total time managing care of this patient today ____ minutes.
--- NOTE | 2024-10-11 09:38 | W.PM.OPN ---
Operative Note Operative Note Date of Service: 10/11/24 Narrative: Date of Service: 10/11/24 Pre-op diagnosis: Left hip OA Post-op diagnosis: same Procedure: Left DALJIT Implants: [place] Trident2 54 Em Accolade2 #4 132/+0 36 ceramic Surgeon: Juan David Katz MD Anesthesia: GETA and local Was an Animal Husbandry Professor used for this Procedure?: Yes Animal Husbandry Professor: Andrew Mera Estimated blood loss (mL): 200 IV fluids (mL): 1,000 Pathology: other Condition: stable Disposition: PACU Patient was brought into the operating room and placed in the right lateral decubitus position. All bony prominences were well padded and the limb was prepped and draped in standard sterile fashion. A time-out was called to identify proper site procedure proper surgeon IV antibiotics and 1 g of tranexamic acid were administered. I began by making a curvilinear incision over the posterolateral aspect of the greater trochanter. Dissection was taken down to the tensor fascia which was incised in line with the incision and a Charnley retractor was placed. Fastseal was used to maintain hemostasis. The hip was internally rotated and the external rotators were identified. The vessels were cauterized and a full-thickness capsular/external rotator layer was developed starting just proximal to the piriformis. This layer was tagged and a dull Hohmann retractor was placed underneath the neck in the hip was dislocated. A neck cut was made ~1 cm proximal to the lesser trochanter and the head and neck were removed and measured 50-52mm on the back table. The head was deformed and eburnated. I then removed the labrum and cauterized the fovea. I started with a 44 reamer and medialized to the inner table. There was extensive osteophytes and exuberant acetabular bone. This was removed with a curved osteotome. The inferior capsule and soft tissues were protected. Most of the bone that was removed was from the inferior 1/2 of the cup but superiorly bone was removed but to a lesser extent. THere was a delineation between little traverse acetabulum and newer bone. Once satisfied I sequentially reamed up to a size 54 and impacted a 54mm cup at ~ 45 degrees of inclination and ~25 degrees of version. I then placed a 20 deg posterior lipped liner and turned my attention to the femur. I identified the piriformis insertion and used this as a starting point for my cookie cutter. The cookie cutter was inserted parallel to the little traverse femoral version and the medius tendon was protected with a Hibs retractor. A Charnley awl was inserted in the canal and a curved curette used to remove the lateral bone. I irrigated copiously. I then sequentially broached in the patient's natural version to a size 4 and placed my trial implants. I used a #4/132/+0 based on my pre-operative template. I removed all instrumentation and copiously irrigated. I placed my final femoral implant and again took the hip through range of motion and was satisfied with the stability and length. The final +0 implant was impacted in place and the hip reduced. I then irrigated copiously and placed 1 g of local tranexamic acid. I performed a capsular closure with 2.0 fiberwire, Ira's fascia with 0 Vicryl, subcuticular with 2-0 Vicryl and the skin with dayna. Patient was placed into a sterile dressing. Patient was extubated brought to the recovery room in stable condition. There were no known complications.
[2024-10-11] MEDS: HYDROmorphone HCl 0.5 MG/0.5 ML SYRINGE 0.25 MG IVPUSH ×9 (10:10→19:33)
--- NOTE | 2024-10-11 11:04 | PHA.MEDREC ---
Addendum entered by Sheree Harmon RPh 10/11/24 11:29: reviewed by [facility]. Original Note: Pharmacy Consult ? Medication Reconciliation Pharmacy has reviewed the medication reconciliation done by nursing. Utilized claims to confirm med list.
[2024-10-11] MEDS: cloNIDine HCL 0.1 MG TABLET PO (13:32)
[2024-10-11] MEDS: buPROPion HCl XL 300 MG TAB.ER.24H PO (13:32)
[2024-10-11] MEDS: oxyCODONE HCl Immed Release 5 MG TABLET PO ×2 (13:33→20:46)
[2024-10-11] MEDS: Bictegrav/Emtricit/Tenofov Ala TABLET 1 TAB PO (20:39)
[2024-10-11] MEDS: Docusate Sodium 100 MG CAPSULE PO (20:39)
[2024-10-11] MEDS: Celecoxib 200 MG CAPSULE PO (20:43)
[2024-10-11] MEDS: diphenhydrAMINE HCL 25 MG CAPSULE 75 MG PO (20:45)
[2024-10-11] MEDS: cloNIDine HCL 0.2 MG TABLET PO (20:45)
[2024-10-12] MEDS: oxyCODONE HCl Immed Release 5 MG TABLET PO ×2 (00:54→07:40)
[2024-10-12 03:41] VITALS: BP 103/57; PULSE 94; RESP 18; TEMP 36.8; O2SAT 96
[2024-10-12 05:46] LABS: MANUAL DIFF FLAG NO
[2024-10-12 05:53] LABS: Basophils Percent Auto 0.1 % (0-2); Eosinophils Absolute Auto 0.1 X10*3/uL (0.0-0.4); Eosinophils Percent Auto 0.7 % (0-4); Hematocrit 30.8 % (42.0-52.0); Hemoglobin 10.6 g/dl (14.0-18.0); Imm Gran Abs Auto 0.03 X10*3/uL (0.00-0.03); Imm Gran Pct Auto 0.3 % (0.0-0.4); Lymphocytes Absolute Auto 1.9 X10*3/uL (1.2-4.9); Lymphocytes Percent Auto 16.6 % (20-40); Mean Corpuscular HGB Conc 34.4 g/dl (31.0-36.0); Mean Corpuscular Hemoglobin 32.7 pg (27.0-33.0); Mean Corpuscular Volume 95.1 fL (80.0-98.0); Mean Platelet Volume 10.2 fL (9.4-12.4); Monocytes Absolute Auto 1.1 X10*3/uL (0.1-1.2); Monocytes Percent Auto 9.7 % (2-11); Neutrophils Absolute Auto 8.2 x10*3/uL (2.0-8.3); Neutrophils Percent Auto 72.6 % (45-73); Platelet Count 200 X10*3/uL (160-400); Red Blood Count 3.24 X10*6/uL (4.60-5.80); Red Cell Distribution Width 13.5 % (11.0-16.0); White Blood Count 11.3 X10*3/uL (4.8-10.8)
[2024-10-12 06:08] LABS: Anion Gap 11 (12-20); Blood Urea Nitrogen 17 mg/dL (9-16); Carbon Dioxide 21 mmol/L (22-29); Chloride 109 mmol/L (96-108); Creatinine Clr Calc Pharmacy 98.1; Estimated Glomerular Filt Rate > 60; Glucose Fasting 186 mg/dL (60-99); Potassium 4.3 mmol/L (3.3-5.1); Sodium 137 mmol/L (135-145)
[2024-10-12] MEDS: Docusate Sodium 100 MG CAPSULE PO (07:40)
[2024-10-12] MEDS: oxyCODONE HCl ER 10 MG TAB.ER.12H PO (07:41)
[2024-10-12] MEDS: cloNIDine HCL 0.1 MG TABLET PO (07:41)
[2024-10-12] MEDS: Aspirin 325 MG TABLET PO (07:41)
[2024-10-12] MEDS: Celecoxib 200 MG CAPSULE PO (07:41)
[2024-10-12] MEDS: buPROPion HCl XL 300 MG TAB.ER.24H PO (07:41)
[2024-10-12] MEDS: Cyanocobalamin (Vitamin B-12) 1,000 MCG TABLET 1000 MCG PO (07:45)
[2024-10-12 07:53] VITALS: BP 112/59; PULSE 85; RESP 18; TEMP 36.4; O2SAT 98
[2024-10-12 08:06] VITALS: BP 112/59; PULSE 85; O2SAT 98
--- NOTE | 2024-10-12 08:16 | HO.POSTANES ---
Post Anesthesia Evaluation Post Anesthesia Evaluation Date of Service: 10/12/24 Vital Signs: Vital Signs Temp Pulse Resp BP Pulse Ox O2 Del Method 10/12/24 08:06 85 112/59 L 98 10/12/24 07:53 97.5 F 85 18 112/59 L 98 Room Air 10/12/24 03:41 98.2 F 94 18 103/57 L 96 Room Air 10/11/24 23:19 98.1 F 86 18 106/62 95 Room Air Anesthesia: General Endotracheal-GETA Mental Status: Awake Pain Control: Satisfactory Nausea/Vomiting: None Hydration: Adequate Anesthesia-Related Issues: No Anes. Related Issues
--- NOTE | 2024-10-12 09:14 | MHC.CM.PN ---
CM MET WITH PT AT BEDSIDE. PT LIVES WITH A ROOMMATE AND IS FUNCTIONALLY INDEPENDENT AT BASELINE. +[place] [facility] ATKINSON DP: PT HAS BEEN MEDICALLY CLEARED FOR DC HOME WITH NEW [facility] FOR P.T. [facility] NOTIFIED OF TODAY'S DC. PT HAS OWN RIDE HOME.
== END 2024-10-12 10:49 | disposition home health service (06) ==
LOC: HO.SSS 09:01 → HO.S3 12:19
PROVIDERS: Physician Assistant; PCP Internal Medicine; Visit Provider Orthopaedic Surgery
PROC: (CPT 27130; principal; 2024-10-11 07:30)
DX: M16.12 Unilateral primary osteoarthritis, left hip (principal); M25.552 Pain in left hip; R26.2 Difficulty in walking, not elsewhere classified; B20 Human immunodeficiency virus [HIV] disease; G47.33 Obstructive sleep apnea (adult) (pediatric); I10 Essential (primary) hypertension; R73.01 Impaired fasting glucose; I25.10 Atherosclerotic heart disease of native coronary artery without angina pectoris; Z95.5 Presence of coronary angioplasty implant and graft; I25.2 Old myocardial infarction; J44.9 Chronic obstructive pulmonary disease, unspecified; D64.9 Anemia, unspecified; G51.0 Bell's palsy; Z22.7 Latent tuberculosis; K62.82 Dysplasia of anus; Z86.14 Personal history of Methicillin resistant Staphylococcus aureus infection; Z86.19 Personal history of other infectious and parasitic diseases; Z79.82 Long term (current) use of aspirin; Z79.899 Other long term (current) drug therapy; F19.11 Other psychoactive substance abuse, in remission; F17.210 Nicotine dependence, cigarettes, uncomplicated; Z98.890 Other specified postprocedural states
CPT/HCPCS: 27130; 36415; 71046; 72170; 80048; 85025; 86850; 86900; 86901; 87640; 87641; 88304; 88311; 97110; 97116; 97162; 97166; 97530; C1776; J0131; J0690; J1100; J1171; J2003; J2250; J2371; J2405; J2704; J2795; J3010; J7120

== ENCOUNTER → 2024-10-11 06:00 | Outpatient (BNV) | payer MEDICAID, SELFPAY | PROVIDERS: PCP Internal Medicine; Visit Provider Orthopaedic Surgery | DX: M16.12 Unilateral primary osteoarthritis, left hip (principal) | CPT/HCPCS: 27130; 99238; G0180 ==

== ENCOUNTER → 2024-10-11 09:27 | Outpatient (BNV) | payer MEDICAID, SELFPAY | PROVIDERS: PCP Internal Medicine; Visit Provider Radiology Diagnostic Radiology | DX: M17.12 Unilateral primary osteoarthritis, left knee (principal); Z96.642 Presence of left artificial hip joint | CPT/HCPCS: 72170 ==

== ENCOUNTER 2024-10-27 12:50 | Outpatient (AMB) | payer MEDICAID, SELFPAY ==
--- NOTE | 2024-10-27 12:57 | MHC.OFFVIS ---
Intake Visit Reasons: TM JESUS:2WK PO: L DALJIT w/NE 10/11/24 Intake Note: Jeb is a 54 yeaar old male who presents today for his first post operative appointment s/p Left DALJIT 10/11/24.He reports no pain and he is taking celebrex and Aspirin. He is working with Home PT and he has transitioned to Outpatient PT at [facility]. Michael removed and steri strip applied. Allergies No Known Allergies [No Known Allergies*] Allergy (Verified 10/27/24 13:08) HPI HPI TM JESUS:2WK PO: L DALJIT w/NE 10/11/24: Details: Mr. Hunter is a 54-year-old male who presents to the office today status post left total hip arthroplasty performed on 10/11/[address] Katz. Patient presents to the office today without any assistive devices needed to ambulate. He is attending physical therapy outpatient beginning tomorrow. Overall he is doing very well with no concerns. 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 Atherosclerosis of coronary artery Left arm swelling HTN (hypertension) Mastalgia IFG (impaired fasting glucose) Vitamin D deficiency Hyperglycemia Tobacco dependence syndrome Pure hypercholesterolemia Right arm weakness Mood disorder Insomnia Depression Polysubstance abuse Non-traumatic rhabdomyolysis Nondependent mixed drug abuse in remission Neck pain Mixed hyperlipidemia Hypertriglyceridemia Lipodystrophy CAD (coronary artery disease) Dysplasia of anus Ulcer of foot Chronic ulcer of lower extremity Chronic rhinitis Cellulitis of lower extremity Restless leg Cellulitis of groin Bronchitis COPD (chronic obstructive pulmonary disease) Abnormal CPK Abnormal colonoscopy Colon cancer screening AIN grade I Presence of stent in LAD coronary artery Bipolar 1 disorder Arthritis HIV (human immunodeficiency virus infection) Surgical History History of esophagogastroduodenoscopy (EGD) History of coronary artery stent placement History of colonoscopy (~08/19/24) History of surgery History of right hip replacement (~10/2014) Family History Other Family history unknown Social History Household Members: Other Household Members Other:: roomate Housing: House Housing Other:: 13 steps to second floor Are you a primary home health aide caregiver to a significant other at home: No Do you presently have visiting nurse or other home services: No Unable to assess alcohol history related to: Unknown Patient Tobacco Use Status: Current everyday Tobacco user Tobacco use type: Cigarette Cigarette Packs Per Day: 1 Cigarettes Per Day: 20.0 service: No Review of Systems Const All systems reviewed & are unremarkable except as noted in HPI and below Physical Exam Const General: cooperative, healthy appearing and no acute distress Extrem Other: Left hip incision site is clean dry and intact. Michael intact. No surrounding erythema or drainage. No signs of infection. NVI. Assessment & Plan Assessment & Plan (1) Status post total replacement of left hip: Code(s): Z96.642 - Presence of left artificial hip joint Category: Surgical Plan Mr. Hunter is a 54-year-old male who presents to the office today status post left total hip arthroplasty performed on 10/11/[address] Katz. Patient presents to the office today without any assistive devices needed to ambulate. He is attending physical therapy outpatient beginning tomorrow. Overall he is doing very well with no concerns. While in the office today, the patient's michael removed and Steri-Strips were applied. Continue aspirin 325 mg p.o. b.i.d. for a total of 6 weeks postoperatively. He will continue attending outpatient physical therapy and follow up in [address] Katz, sooner if needed. Coding Level of Care Code Global (74769) Diagnoses Status post total replacement of left hip Z96.642
--- OUTSIDE RECORDS SUMMARY | 2024-10-27 15:07 | XMS_ITS | Clinical Summary ---
Author Organization [facility] Address [address] [place] [address] Care Team Providers Care Communications Equipment Installer Name Role Phone Unavailable Primary Care Provider [...] 1.1 % gelIndications: Caries of enamel (incipient) [place] twice daily and expectorate. Do not rinse. 56 g 4 04/29/2024 Active Active Problems Problem Noted Date Diagnosed Date Fitting and adjustment of dental prosthetic dayday ce 05/05/2023 History of hip replacement 08/08/2022 Encounters Date Type Department Care Team Description 08/15/2024 4:20 PM EST Office Visit [facility] [address] [place] [phone] Naveed Aguayo DDS Caries of enamel (incipient) (Primary Dx) 08/09/2024 3:00 PM EST Office Visit [facility] [address] [place] [phone] Naveed Aguayo DDS Caries (Primary Dx); Caries of enamel (incipient) 07/29/2024 11:20 AM EST Office Visit [facility] [address] [place] [phone] Naveed Aguayo DDS Caries of enamel (incipient) (Primary Dx); Defective dental muslim; Dental caries on smooth surface penetrating into [...] EDT Office Visit [facility] [address] [place] [phone] Siva Campos, NISHA [address] [place] [address] Health Maintenance Due Date Last Done Comments Anxiety Screening 1971 Diabetes Screening 1971 Hepatitis C Screening 1971 [...] 2) 2021 Tobacco Cessation Counseling (#1) 10/06/2023 [id number] ( - season) 03/06/202410/03/2 021, 09/05/2020 Imm-Influenza (#1) [...] Completed 02/13/2006, 04/11/2005 Imm-Hepatitis B Completed 02/13/2006, 03/2006, 08/14/2005 Procedures Procedure Name Priority Date/Time [...] smooth surface penetrating into dentin Defective dental muslim 29 DO RESIN-BASED COMPOSITE - TWO SURFACES POSTERIOR Routine 07/29/2024 11:20 AM EST Defective dental muslim Dental caries on smooth surface penetrating into dentin Caries of enamel (incipient) 31 MO RESIN-BASED COMPOSITE - TWO SURFACES POSTERIOR Routine 07/29/2024 11:20 AM EST Caries of enamel (incipient) Defective dental muslim Dental caries on smooth surface penetrating into [...] Most Recently Relevant to Health Maintenance Insurance [place] MEDICA[place]
== END 2024-10-27 13:08 | disposition home or self-care (01) ==
LOC: HO.HOS 12:50
PROVIDERS: PCP Internal Medicine; Visit Provider Physician Assistant
DX: Z96.642 Presence of left artificial hip joint (principal)
CPT/HCPCS: 99024

== ENCOUNTER → 2024-10-27 12:50 | Outpatient (BNVA) | payer MEDICAID, SELFPAY | PROVIDERS: PCP Internal Medicine; Visit Provider Physician Assistant | DX: Z47.1 Aftercare following joint replacement surgery (principal); Z96.642 Presence of left artificial hip joint | CPT/HCPCS: 99212 ==

== ENCOUNTER 2024-11-17 12:04 | Outpatient (REF) | payer MEDICAID, SELFPAY ==
--- NOTE | ~2024-11-17 | XR_ITS ---
EXAMINATION: XR PELVIS 1-2 VIEWS, XR HIP 1 VIEW LEFT HISTORY: M25.559 - Pain in unspecified hip COMPARISON: Comparison is made with the prior examination dated 10/11/2024. FINDINGS: A single AP view of the pelvis and an additional view of the left hip are submitted. The patient is status post total hip arthroplasty. The orthopedic elements are in anatomic alignment. There is no radiographic evidence of loosening. There is no fracture or dislocation. A right hip prosthesis is also noted. XR/XR hip LT 1V IMPRESSION: Status post left total hip arthroplasty. Electronically signed by: Luigi Hamilton MD 11/17/2024 02:09 PM EDT
--- NOTE | ~2024-11-17 | XR_ITS ---
EXAMINATION: XR PELVIS 1-2 VIEWS, XR HIP 1 VIEW LEFT HISTORY: M25.559 - Pain in unspecified hip COMPARISON: Comparison is made with the prior examination dated 10/11/2024. FINDINGS: A single AP view of the pelvis and an additional view of the left hip are submitted. The patient is status post total hip arthroplasty. The orthopedic elements are in anatomic alignment. There is no radiographic evidence of loosening. There is no fracture or dislocation. A right hip prosthesis is also noted. XR/XR pelvis 1-2V IMPRESSION: Status post left total hip arthroplasty. Electronically signed by: Luigi Hamilton MD 11/17/2024 02:09 PM EDT
--- OUTSIDE RECORDS SUMMARY | 2024-11-17 13:02 | XMS_ITS | Clinical Summary ---
Author Organization [facility] Address [address] [place] [address] Care Team Providers Care Team Physician Name Role Phone Unavailable Primary Care Provider [...] 1.1 % gelIndications: Caries of enamel (incipient) [place] twice daily and expectorate. Do not rinse. 56 g 4 04/29/2024 Active Active Problems Problem Noted Date Diagnosed Date Fitting and adjustment of dental prosthetic dayday ce 05/05/2023 History of hip replacement 08/08/2022 Social History Tobacco Use Types Packs/Day Years [...] EDT Office Visit [facility] [address] [place] [phone] Siva Campos RHD [address] [place] [address] Health Maintenance Due Date Last Done Comments [...] 2) 2021 Tobacco Cessation Counseling (#1) 10/06/2023 [id number] ( season) 2024 021, 09/05/2020 Imm-Influenza (#1) 2024 07/03/2020, 1 , 06/03/2018, Additional history exists Alcohol and Drug Screen 07/06/2024 Depression Annual Screen 07/06/2024 Dental BW 04/30/2025 04/28/2024, /2 10/2023, 05/04/2023, Additional history exists Dental Examination 04/30/2025 04/28/2024, 0 10/28/2023, 05/04/2023, Additional history exists Dental Perio Charting 04/30/2025 04/28/2024 , 10/28/2023, 05/04/2023 Dental Prophy 04/30/2025 04/28/2024, 10/05, 05/04/2023, Additional history exists Hypertension Screening (#1) 08/09/2025 Dental FMX/Pano 08/10/2027 08/08/2022 Imm-Hepatitis A Completed 02/13/2006, 04/11/2005 Imm-Hepatitis B Completed 02/13/2006, 03/2006, 08/14/2005 Procedures Procedure Name Priority Date/Time Associated Diagnosis Comments BITEWINGS - FOUR RADIOGRAPHIC IMAGES Routine 04/28/2024 [...] Most Recently Relevant to Health Maintenance Insurance [place]
== END 2024-11-17 12:05 | disposition home or self-care (01) ==
LOC: HO.HOSX 12:04
PROVIDERS: Visit Provider Orthopaedic Surgery
DX: Z47.1 Aftercare following joint replacement surgery (principal); Z96.642 Presence of left artificial hip joint
CPT/HCPCS: 72170; 73501; 99212

== ENCOUNTER 2024-11-17 12:20 | Outpatient (AMB) | payer MEDICAID, SELFPAY ==
--- NOTE | 2024-11-17 12:34 | MHC.OFFVIS ---
Intake Visit Reasons: 6WK PO: L DALJIT w/NE 10/11/24 Intake Note: Jeb is a 54 year old male who presents today for a post operative appointment about 6 weeks s/p Left DALJIT 10/11/24. Patient reports that he is doing very well, he continues to work with outpatient PT and has no concerns. Allergies No Known Allergies [No Known Allergies*] Allergy (Verified 11/17/24 12:37) HPI HPI 6WK PO: L DALJIT w/NE 10/11/24: Details: 6 weeks s/p left DALJIT. 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 Atherosclerosis of coronary artery Left arm swelling HTN (hypertension) Mastalgia IFG (impaired fasting glucose) Vitamin D deficiency Hyperglycemia Tobacco dependence syndrome Pure hypercholesterolemia Right arm weakness Mood disorder Insomnia Depression Polysubstance abuse Non-traumatic rhabdomyolysis Nondependent mixed drug abuse in remission Neck pain Mixed hyperlipidemia Hypertriglyceridemia Lipodystrophy CAD (coronary artery disease) Dysplasia of anus Ulcer of foot Chronic ulcer of lower extremity Chronic rhinitis Cellulitis of lower extremity Restless leg Cellulitis of groin Bronchitis COPD (chronic obstructive pulmonary disease) Abnormal CPK Abnormal colonoscopy Colon cancer screening AIN grade I Presence of stent in LAD coronary artery Bipolar 1 disorder Arthritis HIV (human immunodeficiency virus infection) Surgical History History of esophagogastroduodenoscopy (EGD) History of coronary artery stent placement History of colonoscopy (~08/19/24) History of surgery History of right hip replacement (~10/2014) Family History Other Family history unknown Social History Household Members: Other Household Members Other:: roomate Housing: House Housing Other:: 13 steps to second floor Are you a primary manager respiratory care to a significant other at home: No Do you presently have visiting nurse or other home services: No Unable to assess alcohol history related to: Unknown Patient Tobacco Use Status: Current everyday Tobacco user Tobacco use type: Cigarette Cigarette Packs Per Day: 1 Cigarettes Per Day: 20.0 service: No Physical Exam Extrem Other: walking normally. no pain with hip ROM inc c/d/i Results Reviewed Results Reviewed: I personally reviewed relevant radiographs. Left DALJIT in expected post operative position with no hardware complications or evidence of loosening Assessment & Plan Assessment & Plan (1) Status post total replacement of left hip: Code(s): Z96.642 - Presence of left artificial hip joint Category: Surgical Plan: Doing well. f/u 6 weeks. Continue activity as toelrated. Orders: Orders XR pelvis 1-2V Today M25.559 - Pain in unspecified hip XR hip LT 1V Today M25.552 - Pain in left hip Coding Level of Care Code Global (81798) Diagnoses Status post total replacement of left hip Z96.642
== END 2024-11-17 12:52 | disposition home or self-care (01) ==
LOC: HO.HOS 12:21
PROVIDERS: PCP Internal Medicine; Visit Provider Orthopaedic Surgery
DX: Z96.642 Presence of left artificial hip joint (principal)
CPT/HCPCS: 99024

== ENCOUNTER → 2024-11-17 12:23 | Outpatient (BNV) | payer MEDICAID, SELFPAY | PROVIDERS: Visit Provider Radiology Diagnostic Radiology | DX: M25.552 Pain in left hip (principal); T84.84XA Pain due to internal orthopedic prosthetic devices, implants and grafts, initial encounter; Z96.642 Presence of left artificial hip joint | CPT/HCPCS: 72170; 73501 ==

== ENCOUNTER 2024-11-29 15:12 | Outpatient (REF) | payer MEDICAID, SELFPAY ==
--- OUTSIDE RECORDS SUMMARY | 2024-11-29 15:15 | XMS_ITS | Clinical Summary ---
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 Do not rinse. [...] Description 01/09/2025 1:40 PM EDT Office Visit [facility] [address] [place] [id number] Siva Campos RHD [address] [place] [address] Health Maintenance Due Date Last Done Comments [...] 2) 2021 Tobacco Cessation Counseling (#1) 10/06/2023 [id number] ( season) 2024 021, 09/05/2020 Imm-Influenza (#1) [...] Most Recently Relevant to Health Maintenance Insurance [place] MED[place]
[2024-11-29 17:16] LABS: Estimated Average Glucose 105 mg/dL; Hemoglobin A1C 119.1887 umol/L; Hemoglobin A1c % 5.3 % (<6.0); Total Hemoglobin (HGBA1C) 3494.8521 umol/L
[2024-11-29 17:31] LABS: Glucose Fasting 105 mg/dL (60-99)
[2024-11-30 20:04] LABS: HIV RNA PCR Qn Copies NOT DETECTED copies/mL (NOT DETECTED); HIV RNA PCR Qn Log Copies NOT DETECTED (NOT DETECTED)
== END 2024-11-29 15:13 | disposition home or self-care (01) ==
LOC: HO.LAB 15:12
PROVIDERS: Absent Provider Student in an Organized Health Care Education/Training Program; PCP Internal Medicine; Visit Provider Internal Medicine
DX: R73.01 Impaired fasting glucose (principal); Z21 Asymptomatic human immunodeficiency virus [HIV] infection status
CPT/HCPCS: 36415; 82947; 83036; 87536

== ENCOUNTER 2024-12-08 15:02 | Outpatient (RCR) | payer MEDICAID, SELFPAY ==
--- NOTE | 2024-11-03 13:47 | MHC.PT.EP ---
[facility] [place] [facility] [place] Office [place] Office [address] Arely Mead [address] [phone] F: [phone] F: [phone] F: [phone] F: [phone] Physical Therapy Plan of Care Date of Evaluation: 11/03/24 Date of Surgery: 10/11/24 Diagnosis: s/p LEFT DALJIT (DOS: 10/11/24, Dr. Katz) RS Assessment: Jeb is a pleasant, motivated 54 y.o. male who is referred to PT by Dr. Juan David Katz of [facility] with Dx of s/p LEFT total hip arthroplasty due to severe LEFT hip osteoarthritis (DOS: 10/11/24). He had about 2 weeks of home PT prior to coming to outpatient PT. Patient impairments include pain, healing incision site, antalgic gait, limited hip ROM and weakness. (Pt is also maintaining posterior hip precautions.) Patient current functional limitations are difficulty walking, ascend/descend stairs, bend/squat, lower body dressing. Patient will benefit from skilled PT to address aforementioned impairments and functional limitations to meet established goals. Frequency and Duration: The patient will be seen 1-2x/week for 4 weeks Short Term Goals: 2 weeks Patient demonstrates independence with HEP to improve his strength, endurance and mobility. Patient is consistent with maintaining posterior hip precautions. Nursing Home Goals: 4 weeks Patient presents with L glue med strength 4/5 to improve gait, non antalgic without AD use. Patient presents with increased L hip flexion 4+/5 to perform reciprocal stair use 1 flight. Treatment Plan: Modalities to reduce pain, spasms and effusion. Manual therapy to restore motion and function. Therapeutic exercise to improve strength and flexibility. Neuromuscular re-education for posture and balance. Therapeutic activities to return to functional activities of daily living. Electronically signed by: Amrita Nicole, PT, DPT Please sign and return to therapist. Thank you for your referral.
--- NOTE | 2025-01-26 15:44 | MHC.PT.DC ---
[facility] [place] Office [place] Office [place] Office [address] Arely Mead [address] [phone] F: [phone] F: [phone] F: [phone] F: [phone] Physical Therapy Discharge Report Diagnosis: s/p LEFT DALJIT (DOS: 10/11/24, Dr. Katz) RS Date of Surgery: 10/11/24 Date of Evaluation: 11/03/24 Date of Discharge: 01/26/25 Treatments to Date: 8 Cancellations to Date: 3 No Shows to Date: 1 Discharge Status: Independent with HEP Patient Elected to Stop Recommend MD Follow-up Discharge Summary: Jeb was last seen for PT session on 12/08/24. The note on that date reads, Since Jeb was more fatigued today I has him start on table exercises. He reports fatigue with all glute strengthening exercises. He is tight in psoas and reports relief with passive stretching. Continued with balance and glute strengthening in WB positions. He reports general fatigue end of session but no hip symptoms. He cancelled his last two scheduled PT sessions and did not schedule more. He is therefore discharged from PT at this time. Electronically signed by: Amrita Nicole, PT, DPT Please sign and return to therapist. Thank you for your referral.
== END 2025-01-26 15:44 | disposition home or self-care (01) ==
LOC: HO.PT 15:02
PROVIDERS: PCP Internal Medicine; Visit Provider Physician Assistant
DX: Z47.1 Aftercare following joint replacement surgery (principal); Z96.642 Presence of left artificial hip joint
CPT/HCPCS: 97110; 97112; 97140; 97161; 97530

== ENCOUNTER 2025-04-12 11:43 | Outpatient (AMB) | payer MEDICAID, SELFPAY ==
--- NOTE | 2025-04-12 11:47 | A.OFFVIS_ITS ---
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 He is a patient of Dr. Luc Sandy on. 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 Atherosclerosis of coronary artery Left arm swelling HTN (hypertension) Mastalgia IFG (impaired fasting glucose) Vitamin D deficiency Hyperglycemia Tobacco dependence syndrome Pure hypercholesterolemia Right arm weakness Mood disorder Insomnia Depression Polysubstance abuse Non-traumatic rhabdomyolysis Nondependent mixed drug abuse in remission Neck pain Mixed hyperlipidemia Hypertriglyceridemia Lipodystrophy CAD (coronary artery disease) Dysplasia of anus Ulcer of foot Chronic ulcer of lower extremity Chronic rhinitis Cellulitis of lower extremity Restless leg Cellulitis of groin Bronchitis COPD (chronic obstructive pulmonary disease) Abnormal CPK Abnormal colonoscopy Colon cancer screening AIN grade I Presence of stent in LAD coronary artery Bipolar 1 disorder Arthritis HIV (human immunodeficiency virus infection) Surgical History History of esophagogastroduodenoscopy (EGD) History of coronary artery stent placement History of colonoscopy (~08/19/24) History of surgery History of right hip replacement (~10/2014) Family History Other Family history unknown Social History Household Members: Other Household Members Other:: roomate Housing: House Housing Other:: 13 steps to second floor Are you a primary rn primary care to a significant other at home: No Do you presently have visiting nurse or other home services: No Patient Tobacco Use Status: Current everyday Tobacco user Tobacco use type: Cigarette Cigarette Packs Per Day: 1 Cigarettes Per Day: 20.0 service: No Assessment & Plan Assessment & Plan (1) Nocturia more than twice per night: Code(s): R35.1 - Nocturia Category: Medical Plan PSA Trial tadalafil Orders: Orders Prostate Specific Antigen 3 Months R35.1 - Nocturia Medications: New tadalafil 5 mg PO DAILY 90 tabs 0RF 90 days R35.1 - Nocturia Patient Instructions: This note is constructed using voice recognition software. While every effort has been made to ensure accuracy technical planner errors may have been included. Imaging studies, laboratory and physical exam results were discussed and revi ewed in detail. No major barriers to patient understanding were identified. An opportunity to ask questions regarding the treatment plan was provided. All questions were answered. The patient expressed understanding and agreement with the above treatment plan. The patient is aware they should contact our office by phone for worsening of their current condition or the appearance of new urologic symptoms. Compliance is encouraged with any medications and followup testing that is ordered. It is a privilege to participate in the urologic care of your patient. If you have any questions or concerns regarding treatment for the above conditions, or other urologic issues, please do not hesitate to contact me. The office telephone contact is [phone]. Sincerely, Dr Iker Celaya MD, [facility] - Urology Compassionate Specialist Care for the Genitourinary System Coding Level of Care Code New Pt Level 4 (84841) Diagnoses Nocturia more than twice per night R35.1
== END 2025-04-12 12:23 | disposition home or self-care (01) ==
LOC: HO.HUSH 11:44
PROVIDERS: PCP Internal Medicine; Visit Provider Urology
DX: Z13.9 Encounter for screening, unspecified (principal); R35.1 Nocturia
CPT/HCPCS: 99204

== ENCOUNTER → 2025-04-12 11:43 | Outpatient (BNVA) | payer MEDICAID, SELFPAY | PROVIDERS: PCP Internal Medicine; Visit Provider Urology | DX: R35.1 Nocturia (principal) | CPT/HCPCS: 81003; 99202 ==

== ENCOUNTER 2025-06-07 14:22 | Outpatient (REF) | payer MEDICAID, SELFPAY ==
[2025-06-07 16:08] LABS: MANUAL DIFF FLAG NO
[2025-06-07 16:28] LABS: Hematocrit 45.5 % (42.0-52.0); Hemoglobin 15.6 g/dl (14.0-18.0); Imm Gran Abs Auto 0.02 X10*3/uL (0.00-0.03); Imm Gran Pct Auto 0.2 % (0.0-0.4); Lymphocytes Absolute Auto 3.0 X10*3/uL (1.2-4.9); Mean Corpuscular HGB Conc 34.3 g/dl (31.0-36.0); Mean Corpuscular Hemoglobin 32.8 pg (27.0-33.0); Mean Corpuscular Volume 95.6 fL (80.0-98.0); NRBC Abs Auto 0.000 X10*3/uL (0.0-0.012); NRBC Pct Auto 0.0 /100WBC (0.0-0.2); Platelet Count 303 X10*3/uL (160-400); Red Blood Count 4.76 X10*6/uL (4.60-5.80); White Blood Count 8.1 X10*3/uL (4.8-10.8)
[2025-06-07 16:38] LABS: Alanine Aminotransferase 34 U/L (0-40); Albumin Level 4.7 g/dL (3.5-5.0); Alkaline Phosphatase 116 U/L (39-117); Anion Gap 11 (12-20); Aspartate Amino Transferase 34 U/L (5-37); Blood Urea Nitrogen 14 mg/dL (9-16); Calcium 9.0 mg/dL (8.4-10.2); Carbon Dioxide 23 mmol/L (22-29); Chloride 110 mmol/L (96-108); Estimated Glomerular Filt Rate > 60; Potassium 4.3 mmol/L (3.3-5.1); Sodium 140 mmol/L (135-145); Total Protein 6.9 g/dL (6.5-8.0)
[2025-06-09 08:39] LABS: HIV RNA PCR Qn Copies NOT DETECTED copies/mL (NOT DETECTED); HIV RNA PCR Qn Log Copies NOT DETECTED (NOT DETECTED)
[2025-06-12 15:18] LABS: Absolute CD3 Count 2241 cells/uL (840-3060); Absolute CD8 Count 1420 cells/uL (180-1170); Percent CD3 Cells 88 % (57-85); Percent CD8 Cells 56 % (12-42)
[2025-06-12 15:54] LABS: Testosterone, Free 81.6 pg/mL (35.0-155.0)
== END 2025-06-07 14:23 | disposition home or self-care (01) ==
LOC: HO.HHCL 14:22
PROVIDERS: PCP Internal Medicine; Referring Provider Student in an Organized Health Care Education/Training Program; Visit Provider Internal Medicine
DX: E29.1 Testicular hypofunction (principal); N53.19 Other ejaculatory dysfunction; Z21 Asymptomatic human immunodeficiency virus [HIV] infection status
CPT/HCPCS: 36415; 80053; 84402; 84403; 84443; 85025; 86359; 86360; 87536